=== PATIENT | male | born 1960 | race Caucasian/White ===

== ENCOUNTER 2016-10-22 08:06 | Day surgery (SDC) | payer BC ==
[~2016-10-22] VITALS: Ht 172.7 cm; Wt 100.0 kg
[~2016-10-22 08:06] MED LIST: ALBU8.5H INH; ALPR0.255 PO; ASPI-611 PO; ATOR20TA59 PO; ESCI10TA47 PO; LIDOCAINE 1% (10mg/ml) 2ml SDV INJ ONE; LISI-621 PO; LR 1,000 ML IV SCH; TIOT4MIS5 ORAL INH
--- OUTSIDE RECORDS SUMMARY | 2016-10-22 08:11 | XMS REPORT | Continuity of Care Document ---
Author Author [facility] Organization [facility] Address Unknown Phone Unavailable Support Name Relationship Address Phone CONSTANCE [place] Next Of Kin [address] [place] [address] Unavailable Insurance Providers Payer Name Policy Number Subscriber Name Relationship [facility] [id number] Chula Chavarria 20 Self Problems No Known Problems or Medical conditions. Family History History Response Recorded Date/Time HX of Orthopedic Surgeries Y L THUMB PARTIAL AMPUTATION 12/26/12 6:18am Hx Abdominal Surgery Y bowel resection 10/1612/26/12 6:18am HX Cerebrovascular Accident N 12/26/12 6:18am Hx Seizures N 12/26/12 6:18am Hx Angina N 12/26/12 6:18am Hx Congestive Heart Failure N 12/26/12 6:18am Hx Heart Attack N 12/26/12 6:18am Hx Hypertension Y 12/26/12 6:18am Hx Chronic Obstructive Pulmonary Disease (COPD) N 12/26/12 6:18am Hx Diabetes N 12/26/12 6:18am Hx Clotting Problems N 12/26/12 6:18am Hx Cancer Y RECENT DX COLON CA 12/26/12 6:18am Hx MRSA N 12/26/12 6:18am HX of Cardiac Surgeries N 12/26/12 6:18am HX of Reproductive Surgeries Y VASECTOMY 12/26/12 6:18am HX of Endocrine Surgeries N 12/26/12 6:18am HX of Throat Surgery Y TONSILLECTOMY 12/26/12 6:18am HX of Neurological Surgeries N 12/26/12 6:18am HX of Genitourinary Surgeries N 12/26/12 6:18am Social History History Response Recorded Date/Time Smoking Status Current every day smoker 12/26/12 6:18am Chewing Tobacco Status N 12/26/12 6:18am Hx Substance Use N 12/26/12 6:18am Hx Alcohol Use N 07/23/13 6:18am Has the pt used tobacco in the last 12 months Y 12/13/12 6:03am Allergies, Adverse Reactions, Alerts Allergen Type Severity Reaction Last Updated No Known Allergies 12/26/12 Medications Medication Dose Units Route Sig Qty Days [5-Fu] IV CONTINUOUS Hydrocodone Bit/Acetaminophen (Lortab 5) 1 Tab PO PRN Prochlorperazine Maleate 10 Mg PO PRN Ondansetron Hcl 8 Mg PO PRN Lisinopril/Hydrochlorothiazide (Lisinopril-Hctz 10-12.5 Tablet) 1 Tab PO DAILY Lisinopril/Hydrochlorothiazide (Lisinopril-Hctz 20-25MG Tab) 0.5 Tab PO DAILY Simvastatin 40 Mg PO DAILY Nebivolol Hcl (Bystolic) 5 Mg PO DAILY Sildenafil Citrate (Viagra) 50 Mg PO PRN Immunizations Name Given Type Hx Influenza Vaccination Y FALL 2011 H Hx Pneumococcal Vaccination Y 2009 H Response Recorded Date/Time Status not known Unknown Results Test Date Result Interp. Ref. Range Alanine Aminotransferase (ALT/SGPT) December 14, 2012 4:55am 39 U/L N 21-72 Albumin December 14, 2012 4:55am 3.8 G/DL N 3.5-5.0 Albumin/Globulin Ratio December 14, 2012 4:55am 1.4 RATIO N 1.1-2.2 Alkaline Phosphatase December 14, 2012 4:55am 48 U/L N 38-126 Anion Gap December 14, 2012 4:55am 13 MEQ/L N 5-15 Aspartate Amino Transf (AST/SGOT) December 14, 2012 4:55am 45 U/L N 17-59 BUN/Creatinine Ratio December 14, 2012 4:55am 25 RATIO N 6-26 Band Neutrophils # October 17, 2012 5:29am 2.2 T/MM3 - Band Neutrophils % October 17, 2012 5:29am 14.0 % H 0-6 Basophils # (Auto) January 09, 2013 9:10am 0.1 T/MM3 N 0-0.2 Basophils (%) (Auto) January 09, 2013 9:10am 0.6 % N 0-2 Blood Urea Nitrogen December 14, 2012 4:55am 20.0 MG/DL N 9-20 Calcium Level December 14, 2012 4:55am 8.9 MG/DL N 8.4-10.2 Calculated Osmolality December 14, 2012 4:55am 272 MOSM/KG N 261-280 Carbon Dioxide Level December 14, 2012 4:55am 29 MEQ/L N 22-30 Chloride Level December 14, 2012 4:55am 97 MEQ/L L 98-107 Cholesterol Level December 14, 2012 4:55am 222 MG/DL H 132-199 Cholesterol/HDL Ratio December 14, 2012 4:55am 4.5 RATIO N 0-5.0 Conjugated Bilirubin December 13, 2012 3:12am 0.00 MG/DL N 0.00-0.30 Creatinine December 14, 2012 4:55am 0.8 MG/DL DN 0.8-1.5 Eosinophils # (Auto) January 09, 2013 9:10am 0.3 T/MM3 N 0-0.5 Eosinophils (%) (Auto) January 09, 2013 9:10am 3.4 % N 0-4 Globulin December 14, 2012 4:55am 2.7 G/DL N 2.4-3.6 Glomerular Filtration Rate Calc December 14, 2012 4:55am 102 - Glucometer October 16, 2012 8:53pm 129 mg/dL H 75-110 Glucose Level December 14, 2012 4:55am 109 MG/DL N 75-110 HDL Cholesterol Direct December 14, 2012 4:55am 49 MG/DL N 40-60 Hematocrit January 09, 2013 9:10am 45.7 % N 41-53 Hemoglobin January 09, 2013 9:10am 15.3 GM/DL N 13.5-17.5 Immature Granulocyte # (Auto) January 09, 2013 9:10am 0.04 T/MM3 H 0.00- 0.03 Immature Granulocyte % (Auto) January 09, 2013 9:10am 0.5 % N 0.0-0.5 LDL Cholesterol, Calculated December 14, 2012 4:55am 136.8 N 66-159 Lipase December 13, 2012 3:12am 69 U/L N 23-300 Lymphocytes # (Auto) January 09, 2013 9:10am 3.0 T/MM3 N 1-4.8 Lymphocytes # (Manual) October 17, 2012 5:29am 1.0 T/MM3 N 1-4.8 Lymphocytes % (Manual) October 17, 2012 5:29am 6.0 % L 23-45 Lymphocytes (%) (Auto) January 09, 2013 9:10am 37.0 % N 23-45 Mean Corpuscular Hemoglobin January 09, 2013 9:10am 29.8 UUG N 26-34 Mean Corpuscular Hemoglobin Concent January 09, 2013 9:10am 33.5 GM/DL N 31 -37 Mean Corpuscular Volume January 09, 2013 9:10am 88.9 UM3 N 80-100 Mean Platelet Volume January 09, 2013 9:10am 8.9 UM3 L 9.4-12.4 Monocytes # (Auto) January 09, 2013 9:10am 0.7 T/MM3 N 0-0.8 Monocytes # (Manual) October 17, 2012 5:29am 0.5 T/MM3 N 0-0.8 Monocytes % (Manual) October 17, 2012 5:29am 3.0 % N 0-9.0 Monocytes (%) (Auto) January 09, 2013 9:10am 8.2 % N 0-9.0 Neutrophils # (Auto) January 09, 2013 9:10am 4.1 T/MM3 N 1.8-7.7 Neutrophils # (Manual) October 17, 2012 5:29am 12.2 T/MM3 H 1.8-7.7 Neutrophils % (Manual) October 17, 2012 5:29am 77.0 % H 33-66 Neutrophils (%) (Auto) January 09, 2013 9:10am 50.3 % N 33-66 Platelet Count January 09, 2013 9:10am 246 T/MM3 N 130-400 Potassium Level December 14, 2012 4:55am 4.6 MEQ/L N 3.6-5 RDW Standard Deviation January 09, 2013 9:10am 43.9 FL N 36.9-50.2 Red Blood Count January 09, 2013 9:10am 5.14 M/MM3 N 4.50-5.90 Sodium Level December 14, 2012 4:55am 139 MEQ/L N 134-144 Total Bilirubin December 14, 2012 4:55am 1.00 MG/DL N 0.20-1.30 Total Protein December 14, 2012 4:55am 6.5 G/DL N 6.3-8.2 Triglycerides Level December 14, 2012 4:55am 181 MG/DL H 40-160 Troponin I December 13, 2012 6:55pm 0.088 ng/ml DN 0-0.12 Unconjugated Bilirubin December 13, 2012 3:12am 0.60 MG/DL N 0.00-1.10 VLDL Cholesterol December 14, 2012 4:55am 36.2 MG/DL H 0-28 White Blood Count January 09, 2013 9:10am 8.2 T/MM3 N 4.5-11.0 Procedures Procedure Code Date LESION REMOVAL COLONOSCOPY 07377 10/05/12 COLONOSCOPY AND BIOPSY 69169 10/05/12 ANTERIOR RECT RESECT NEC 48.63 10/16/12 LG-TO-LG BOWEL ANASTOM 45.94 10/16/12 ENDO RECTUM POLYPECTOMY 48.36 10/16/12 INSERT TUNNELED CV CATH [id number] 12/11/12 Encounters Encounter Location Date/Time Departed Emergency Room [facility] 12/26/12 6:15am Discharged Inpatient [facility] 12/13/12 4:25am
--- OUTSIDE RECORDS SUMMARY | 2016-10-22 08:11 | XMS REPORT | Continuity of Care Document ---
Author Author [facility] Organization [facility] Address Unknown Phone Unavailable Support Name Relationship Address Phone VERNELL BAUTISTA MD Caregiver [address] [place] [phone] CIRA REAGAN FACS, MD Caregiver [address] [place] [address] [phone] [address] [place] Next Of Kin [address] [place] [address] CP Insurance Providers Payer Name Policy Number Subscriber Name Relationship [facility] [id number] Chula Chavarria 20 Self Advance Directives Directive Response Recorded Date/Time Ordered Resuscitation Status Full Code 11/16/13 5:14pm Problems Medical Problems Problem Onset Date Status COPD Unknown Active rectal cancer Unknown Active right pneumothorax Unknown Active Medications Medication Dose Route Sig Days/Qty Instructions Order Date Discontinued Date Status Sildenafil Citrate 50 Mg PO NEEDED 10/04/12 10/04/12 Discontinued Nebivolol Hcl 5 Mg PO DAILY 10/04/12 10/04/12 Discontinued Lisinopril/Hydrochlorothiazide 0.5 Tab PO DAILY 10/04/12 10/13/12 Discontinued Simvastatin 40 Mg PO DAILY 10/04/12 10/04/12 Discontinued Lisinopril/Hydrochlorothiazide 1 Tab PO DAILY 12/11/12 04/30/13 Discontinued Lisinopril 10 Mg PO DAILY 04/30/13 Active Atorvastatin Calcium 40 Mg PO DAILY 11/16/13 Active Aspirin 81 Mg PO DAILY 11/16/13 Active Social History Social History Problem Response Recorded Date/Time Smoking Status Current some day smoker 11/16/2013 3:28pm Chewing Tobacco Status No 11/16/2013 3:28pm Hx Substance Use No 11/16/2013 3:28pm Hx Alcohol Use No 11/16/2013 3:28pm Has the pt used tobacco in the last 12 months Yes 11/16/2013 3:28pm Query Response Start Date Stop Date Smoking Status Current some day smoker Hospital Discharge Instructions No hospital discharge instructions. Plan of Care No plan of care. Functional Status No functional status results. Allergies, Adverse Reactions, Alerts Allergen Type Severity Reaction Status Last Updated No Known Allergies Active 04/30/13 Immunizations Name Given Type Hx Influenza Vaccination Y 03/2013 Historical Hx Pneumococcal Vaccination Y -2012 Historical Hx Influenza Vaccination Y 03/2013 Historical Vital Signs Acute Vital Signs Vital Response Date/Time Temperature (Fahrenheit) 98.7 deg F (96.8 - 99.1) Temperature (Calculated Celsius) 37.54562 degrees C (36.0 - 37.3) Temperature Source Temporal Pulse Rate (adult) 61 bpm (60 - 100) Respiratory Rate 16 breaths/min (10 - 20) O2 Sat by Pulse Oximetry 96 % (90 - 100) Blood Pressure 121/70 mm Hg Blood Pressure Source Automatic Cuff Height 5 ft 7 in Weight 182 lb Body Mass Index 28.0 kg/m^2 Results Test Source Date Result Interp. Ref. Range Comments Alanine Aminotransferase (ALT/SGPT) February 26, 2013 8:12am 36 U/L N 21-72 Albumin February 26, 2013 8:12am 4.6 G/DL N 3.5-5.0 Albumin/Globulin Ratio February 26, 2013 8:12am 1.4 RATIO N 1.1-2.2 Alkaline Phosphatase February 26, 2013 8:12am 57 U/L N 38-126 Anion Gap February 26, 2013 8:12am 13 MEQ/L N 5-15 Aspartate Amino Transf (AST/SGOT) February 26, 2013 8:12am 30 U/L N 17- 59 BUN/Creatinine Ratio February 26, 2013 8:12am 15 RATIO N 6-26 Band Neutrophils # May 21, 2013 8:30am 0.0 T/MM3 - Band Neutrophils % May 21, 2013 8:30am 1.0 % DN 0-6 Basophils # (Auto) June 26, 2013 10:20am 0.0 T/MM3 N 0-0.2 Basophils (%) (Auto) June 26, 2013 10:20am 0.4 % N 0-2 Blood Urea Nitrogen February 26, 2013 8:12am 15.0 MG/DL N 9-20 Calcium Level February 26, 2013 8:12am 10.4 MG/DL H 8.4-10.2 Calculated Osmolality February 26, 2013 8:12am 275 MOSM/KG N 261-280 Carbon Dioxide Level February 26, 2013 8:12am 29 MEQ/L N 22-30 Chloride Level February 26, 2013 8:12am 100 MEQ/L N 98-107 Cholesterol Level December 14, 2012 4:55am 222 MG/DL H 132-199 Cholesterol/HDL Ratio December 14, 2012 4:55am 4.5 RATIO N 0-5.0 Conjugated Bilirubin December 13, 2012 3:12am 0.00 MG/DL N 0.00-0.30 Creatinine February 26, 2013 8:12am 1.0 MG/DL N 0.8-1.5 Eosinophils # (Auto) June 26, 2013 10:20am 0.1 T/MM3 N 0-0.5 Eosinophils # (Manual) May 21, 2013 8:30am 0.1 T/MM3 N 0-0.5 Eosinophils % (Manual) May 21, 2013 8:30am 2.0 % N 0-4 Eosinophils (%) (Auto) June 26, 2013 10:20am 0.9 % N 0-4 Globulin February 26, 2013 8:12am 3.3 G/DL N 2.4-3.6 Glucose Level February 26, 2013 8:12am 113 MG/DL H 75-110 Hematocrit June 26, 2013 10:20am 42.4 % N 41-53 Hemoglobin June 26, 2013 10:20am 14.2 GM/DL N 13.5-17.5 LDL Cholesterol, Calculated December 14, 2012 4:55am 136.8 N 66-159 Lipase December 13, 2012 3:12am 69 U/L N 23-300 Lymphocytes # (Auto) June 26, 2013 10:20am 1.7 T/MM3 N 1-4.8 Lymphocytes # (Manual) May 21, 2013 8:30am 1.1 T/MM3 N 1-4.8 Lymphocytes % (Manual) May 21, 2013 8:30am 37.0 % N 23-45 Lymphocytes (%) (Auto) June 26, 2013 10:20am 20.2 % L 23-45 Mean Corpuscular Hemoglobin June 26, 2013 10:20am 31.8 UUG N 26-34 Mean Corpuscular Hemoglobin Concent June 26, 2013 10:20am 33.5 GM/DL N 31-37 Mean Corpuscular Volume June 26, 2013 10:20am 94.9 UM3 N 80-100 Mean Platelet Volume June 26, 2013 10:20am 9.0 UM3 L 9.4-12.4 Monocytes # (Auto) June 26, 2013 10:20am 1.1 T/MM3 H 0-0.8 Monocytes # (Manual) May 21, 2013 8:30am 0.3 T/MM3 N 0-0.8 Monocytes % (Manual) May 21, 2013 8:30am 10.0 % H 0-9.0 Monocytes (%) (Auto) June 26, 2013 10:20am 12.5 % H 0-9.0 Neutrophils # (Auto) June 26, 2013 10:20am 5.5 T/MM3 N 1.8-7.7 Neutrophils # (Manual) May 21, 2013 8:30am 1.3 T/MM3 L 1.8-7.7 Neutrophils % (Manual) May 21, 2013 8:30am 43.0 % N 33-66 Neutrophils (%) (Auto) June 26, 2013 10:20am 65.1 % N 33-66 Platelet Count June 26, 2013 10:20am 294 T/MM3 N 130-400 Potassium Level February 26, 2013 8:12am 4.9 MEQ/L N 3.6-5 RDW Standard Deviation June 26, 2013 10:20am 48.5 FL N 36.9-50.2 Red Blood Count June 26, 2013 10:20am 4.47 M/MM3 L 4.50-5.90 Sodium Level February 26, 2013 8:12am 142 MEQ/L N 134-144 Total Bilirubin February 26, 2013 8:12am 1.40 MG/DL H 0.20-1.30 Total Protein February 26, 2013 8:12am 7.9 G/DL N 6.3-8.2 Triglycerides Level December 14, 2012 4:55am 181 MG/DL H 40-160 Troponin I December 13, 2012 6:55pm 0.088 ng/ml DN 0-0.12 Unconjugated Bilirubin December 13, 2012 3:12am 0.60 MG/DL N 0.00-1.10 VLDL Cholesterol December 14, 2012 4:55am 36.2 MG/DL H 0-28 White Blood Count June 26, 2013 10:20am 8.5 T/MM3 N 4.5-11.0 Glucometer October 16, 2012 8:53pm 129 mg/dL H 75-110 Lab Scanned Report June 26, 2013 10:50am LAB TEST FORM REQUEST [id number] - HDL Cholesterol Direct December 14, 2012 4:55am 49 MG/DL N 40-60 Reactive Lymphocytes % May 21, 2013 8:30am 7.0 % H 0-0 Glomerular Filtration Rate Calc February 26, 2013 8:12am 79 - Reactive Lymphocytes # May 21, 2013 8:30am 0.2 T/MM3 H 0-0 Immature Granulocyte # (Auto) June 26, 2013 10:20am 0.08 T/MM3 H 0.00 -0.03 Immature Granulocyte % (Auto) June 26, 2013 10:20am 0.9 % H 0.0-0.5 Procedures Procedure Status Date Provider(s) DIAGNOSTIC COLONOSCOPY completed 11/19/13 CIRA REAGAN MD, FACS, CWS
--- OUTSIDE RECORDS SUMMARY | 2016-10-22 08:11 | XMS REPORT | Continuity of Care Document ---
Author Author [facility] Organization [facility] Address Unknown Phone Unavailable Support Name Relationship Address Phone DHEERAJ ODEN MD Caregiver [facility] [address] [facility] ZONIA MILLER [address] [place] [phone] VERNELL BAUTISTA MD Caregiver [address] [facility] [address] [place] [phone] NERY GARIBAY MD Caregiver [address] [place] [phone] CONSTANCE CHAVARRIA Next Of Kin [address] [place] [address] Insurance Providers Payer Name Policy Number Subscriber Name Relationship [facility] [id number] Chula Chavarria [address] [facility] [id number] Chula Chavarria 20 Self Advance Directives Directive Response Recorded Date/Time Advanced Directives Type None 04/20/14 7:54pm Ordered Resuscitation Status Full Code 11/16/13 5:14pm Resuscitation Documents on File No 04/20/14 11:33pm Chief Complaint and Reason for Visit Chief Complaint SPONTANEOUS PNEUMOTHORAX Reason for Visit COPD exacerbation Pneumothorax on right COPD exacerbation Problems Medical Problems Problem Onset Date Status COPD Unknown Active rectal cancer Unknown Active right pneumothorax Unknown Active COPD exacerbation Unknown Active Pneumothorax on right Unknown Active COPD exacerbation Unknown Active Medications Medication Dose Route Sig [...] Aspirin 81 Mg PO DAILY 11/16/13 Active Amoxicillin 1 Cap PO THREE TIMES A DAY 10 Days 04/21/14 Active Social History Social History Problem Response Recorded Date/Time Smoking Status Current some day smoker 11/16/2013 3:28pm When did patient START smoking? 1975 04/20/2014 11:35pm When did patient STOP smoking? 10/201204/20/2014 11:35pm Chewing Tobacco Status No 11/16/2013 3:28pm Hx Substance Use No 04/20/2014 7:54pm Hx Alcohol Use No 04/20/2014 7:54pm Has the pt used tobacco in the last 12 months Yes 04/20/2014 11:35pm Query Response Start Date Stop Date Smoking Status Current some day smoker Hospital Discharge Instructions Instructions: Care Instructions: Reason for Hospitalization: pneumothorax I was in the hospital because (patient own words): "Collapsed right lung" Discharge Diet: As tolerated Wound/Incision Care: Keep dressings at chest wall dry. Notify Physician If: During the week: If you have questions about your care or wound, Call Dr. Oden's office at [phone]. During the evening or on the weekends: If you have questions about your care or wound, Call [facility] at [phone] and have the sling operator page Dr. Oden. Condition at time of discharge: Good General Information: See [place] orders. Condition at time of discharge: Good Condition at time of discharge: Fair Plan of Care Discharge Date 04/26/14 5:05pm Disposition 01 DISCHARGED HOME, SELF-CARE Instructions/Education Provided DI for Pneumothorax Prescriptions See Medications Section Functional Status Query Response Date Recorded Physical Hygiene Self April 26, 2014 4:51pm Disabilities Visual April 26, 2014 4:51pm Devices Used Glasses April 26, 2014 4:51pm Dressing Self April 26, 2014 4:51pm Ambulation Self April 26, 2014 4:51pm Diet Self April 26, 2014 4:51pm Mental Status Alert Oriented April 26, 2014 4:51pm Disabilities Visual April 26, 2014 4:51pm Devices Used Glasses April 26, 2014 4:51pm Physical Hygiene Self April 26, 2014 4:51pm Dressing Self April 26, 2014 4:51pm Ambulation Self April 26, 2014 4:51pm Diet Self April 26, 2014 4:51pm Allergies, Adverse Reactions, Alerts Allergen Type Severity Reaction Status Last Updated No Known Allergies Active 04/30/13 Immunizations Name Given Type Hx Influenza Vaccination Y 04/21/14 Historical Hx Pneumococcal Vaccination No Historical Hx Tetanus, Diptheria, Pertussis No Historical Hx Influenza Vaccination Y 04/21/14 Historical Hx Tetanus Diptheria No Historical Hx Tetanus, Diptheria, Pertussis No Historical Hx Tetanus Toxoid Vaccination No Historical Influenza, seasonal, injectable 04/21/14 Administered Influenza, seasonal, injectable 04/21/14 Administered Vital Signs Acute Vital Signs Vital Response Date/Time Temperature (Fahrenheit) 97.1 deg F (96.8 - 99.1) Temperature (Calculated Celsius) 36.16981 degrees C (36.0 - 37.3) Temperature Source Oral Pulse Rate (adult) 61 bpm (60 - 100) O2 Sat by Pulse Oximetry 95 % (90 - 100) Oxygen Delivery Method Room Air Blood Pressure 123/75 mm Hg Height 5 ft 7 in Weight 194 lb Body Mass Index 30.0 kg/m^2 Results Test Source Date Result Interp. Ref. Range Comments Alanine Aminotransferase (ALT/SGPT) April 20, 2014 9:03pm 42 U/L N 21 -72 Albumin April 20, 2014 9:03pm 4.3 G/DL N 3.5-5.0 Albumin/Globulin Ratio April 20, 2014 9:03pm 1.3 RATIO N 1.1-2.2 Alkaline Phosphatase April 20, 2014 9:03pm 68 U/L N 38-126 Anion Gap April 20, 2014 9:03pm 13 MEQ/L N 5-15 Aspartate Amino Transf (AST/SGOT) April 20, 2014 9:03pm 32 U/L N 17- 59 BUN/Creatinine Ratio April 20, 2014 9:03pm 19 RATIO N 6-26 Band Neutrophils # May 21, 2013 8:30am 0.0 T/MM3 - Band Neutrophils % May 21, 2013 8:30am 1.0 % DN 0-6 Basophils # (Auto) April 20, 2014 9:03pm 0.1 T/MM3 N 0-0.2 Basophils (%) (Auto) April 20, 2014 9:03pm 0.5 % N 0-2 Blood Urea Nitrogen April 20, 2014 9:03pm 19.0 MG/DL N 9-20 Calcium Level April 20, 2014 9:03pm 9.4 MG/DL N 8.4-10.2 Calculated Osmolality April 20, 2014 9:03pm 281 MOSM/KG H 261-280 Carbon Dioxide Level April 20, 2014 9:03pm 27 MEQ/L N 22-30 Chloride Level April 20, 2014 9:03pm 103 MEQ/L N 98-107 Cholesterol Level December 14, 2012 4:55am 222 MG/DL H 132-199 Cholesterol/HDL Ratio December 14, 2012 4:55am 4.5 RATIO N 0-5.0 Conjugated Bilirubin December 13, 2012 3:12am 0.00 MG/DL N 0.00-0.30 Creatinine April 20, 2014 9:03pm 1.0 MG/DL N 0.8-1.5 D-Dimer April 20, 2014 9:01pm 168 NG/ML N 0-224 <224 NG/ML= PRESUMPTIVE NEGATIVE FOR PE OR DVT>224 NG/ML=ADDITIONAL EVALUATION FOR PE OR DVT RECOMMENDED Eosinophils # (Auto) April 20, 2014 9:03pm 0.1 T/MM3 N 0-0.5 Eosinophils # (Manual) May 21, 2013 8:30am 0.1 T/MM3 N 0-0.5 Eosinophils % (Manual) May 21, 2013 8:30am 2.0 % N 0-4 Eosinophils (%) (Auto) April 20, 2014 9:03pm 1.2 % N 0-4 Globulin April 20, 2014 9:03pm 3.2 G/DL N 2.4-3.6 Glucose Level April 20, 2014 9:03pm 167 MG/DL H 75-110 Hematocrit April 20, 2014 9:03pm 44.0 % N 41-53 Hemoglobin April 20, 2014 9:03pm 14.9 GM/DL N 13.5-17.5 Influenza Type A Antigen April 20, 2014 8:05pm Negative - Negative for Flu A protein antigen. Assay sensitivity is90%. Influenza Type B Antigen April 20, 2014 8:05pm Negative - Negative for Flu B protein antigen. Assay sensitivity is90%. LDL Cholesterol, Calculated December 14, 2012 4:55am 136.8 N 66-159 Lipase December 13, 2012 3:12am 69 U/L N 23-300 Lymphocytes # (Auto) April 20, 2014 9:03pm 1.9 T/MM3 N 1-4.8 Lymphocytes # (Manual) May 21, 2013 8:30am 1.1 T/MM3 N 1-4.8 Lymphocytes % (Manual) May 21, 2013 8:30am 37.0 % N 23-45 Lymphocytes (%) (Auto) April 20, 2014 9:03pm 18.0 % L 23-45 Mean Corpuscular Hemoglobin April 20, 2014 9:03pm 31.0 UUG N 26-34 Mean Corpuscular Hemoglobin Concent April 20, 2014 9:03pm 33.9 GM/DL N 31-37 Mean Corpuscular Volume April 20, 2014 9:03pm 91.7 UM3 N 80-100 Mean Platelet Volume April 20, 2014 9:03pm 8.7 UM3 L 9.4-12.4 Monocytes # (Auto) April 20, 2014 9:03pm 0.9 T/MM3 H 0-0.8 Monocytes # (Manual) May 21, 2013 8:30am 0.3 T/MM3 N 0-0.8 Monocytes % (Manual) May 21, 2013 8:30am 10.0 % H 0-9.0 Monocytes (%) (Auto) April 20, 2014 9:03pm 8.7 % N 0-9.0 Neutrophils # (Auto) April 20, 2014 9:03pm 7.6 T/MM3 N 1.8-7.7 Neutrophils # (Manual) May 21, 2013 8:30am 1.3 T/MM3 L 1.8-7.7 Neutrophils % (Manual) May 21, 2013 8:30am 43.0 % N 33-66 Neutrophils (%) (Auto) April 20, 2014 9:03pm 70.9 % H 33-66 Platelet Count April 20, 2014 9:03pm 382 T/MM3 N 130-400 Potassium Level April 20, 2014 9:03pm 4.1 MEQ/L N 3.6-5 RDW Standard Deviation April 20, 2014 9:03pm 41.5 FL N 36.9-50.2 Red Blood Count April 20, 2014 9:03pm 4.80 M/MM3 N 4.50-5.90 Sodium Level April 20, 2014 9:03pm 143 MEQ/L N 134-144 Total Bilirubin April 20, 2014 9:03pm 0.70 MG/DL N 0.20-1.30 Total Protein April 20, 2014 9:03pm 7.5 G/DL N 6.3-8.2 Triglycerides Level December 14, 2012 4:55am 181 MG/DL H 40-160 Troponin I April 20, 2014 9:03pm < 0.012 ng/ml 0-0.12 Unconjugated Bilirubin December 13, 2012 3:12am 0.60 MG/DL N 0.00-1.10 VLDL Cholesterol December 14, 2012 4:55am 36.2 MG/DL H 0-28 White Blood Count April 20, 2014 9:03pm 10.7 T/MM3 N 4.5-11.0 Chemistry Specimen Hemolysis April 20, 2014 9:03pm < 15 0-25 0-25 : No Hemolysis.26-70: Slight Hemolysis - can falsely elevate K and Urine Protein. 71-285: Moderate Hemolysis - can falsely elevate K, Troponin I, CA 19-9, PTH, CSF GLucose, and Urine Protein, and can falsely decrease Phenytoin. 286-999: Gross Hemolysis - can falsely elevate K, Troponin I, CA 19-9, PTH, CSF Glucose, and Urine Protine, and can falsely decrease Phenytoin. Recommend specimen recollection. Glucometer October 16, 2012 8:53pm 129 mg/dL H 75-110 Lab Scanned Report June 26, 2013 10:50am LAB TEST FORM REQUEST [id number] - HDL Cholesterol Direct December 14, 2012 4:55am 49 MG/DL N 40-60 Turbidity April 20, 2014 9:03pm < 20 0-20 Reactive Lymphocytes % May 21, 2013 8:30am 7.0 % H 0-0 Glomerular Filtration Rate Calc April 20, 2014 9:03pm 79 - Reactive Lymphocytes # May 21, 2013 8:30am 0.2 T/MM3 H 0-0 Immature Granulocyte # (Auto) April 20, 2014 9:03pm 0.07 T/MM3 H 0.00 -0.03 Immature Granulocyte % (Auto) April 20, 2014 9:03pm 0.7 % H 0.0-0.5 Venous Blood Lactate April 20, 2014 9:02pm 1.8 MMOL/L N 0.6-2.2 Icterus Index April 20, 2014 9:03pm < 2 0-7 Blood Culture Peripheral Blood April 20, 2014 9:10pm NO GROWTH AFTER 5 DAYS Name: CHULA CHAVARRIA Unit #: [id number] : 1960 Sex: M Loc / Svc: MED DOS: 04/20/14 Signed Report #: [id number] DIAGNOSTIC IMAGING REPORT TYPE OF EXAM: CHEST 1 VIEW Dictated By: ARTI GAONA MD INDICATION: ITS.REASON: right pneumothorax CHEST 1 VIEW: Comparison: April 25, 2014 Findings: No residual pneumothorax identified. Appearance of the lungs is stable. Subcutaneous emphysema in the right chest wall. Cardiomediastinal contours are unchanged. Impression: Stable chest. No pneumothorax seen. . Procedures No known history of procedures. Encounters Encounter Location Date/Time Discharged Inpatient [facility] 04/20/14 10:04pm Recent Diagnosis COPD exacerbation Pneumothorax on right COPD exacerbation
--- OUTSIDE RECORDS SUMMARY | 2016-10-22 08:11 | XMS REPORT | Continuity of Care Document ---
Author Author [facility] Organization [facility] Address Unknown Phone Unavailable Support Name Relationship Address Phone CONSTANCE LR Next Of Kin [address] [place] [address] Unavailable Insurance Providers Payer Name Policy Number Subscriber Name Relationship [facility] [id number] Chula Chavarria 20 Self Problems No Known [...] Procedures Procedure Code Date LESION REMOVAL COLONOSCOPY 34904 10/05/12 COLONOSCOPY AND BIOPSY 45962 10/05/12 ANTERIOR RECT RESECT NEC 48.63 10/16/12 LG-TO-LG BOWEL ANASTOM 45.94 10/16/12 ENDO RECTUM POLYPECTOMY 48.36 10/16/12 INSERT TUNNELED CV CATH [id number] 12/11/12 Encounters Encounter Location Date/Time Departed Emergency Room [facility] 12/26/12 6:15am Discharged Inpatient [facility] 12/13/12 4:25am
--- OUTSIDE RECORDS SUMMARY | 2016-10-22 08:11 | XMS REPORT | Continuity of Care Document ---
Author Author [facility] Organization [facility] Address Unknown Phone Unavailable Support Name Relationship Address Phone VERNELL BAUTISTA MD Caregiver [address] [place] [address] [place] [phone] CONSTANCE CHAVARRIA Next Of Kin [address] [place], [place] [id number] Insurance Providers Payer Name Policy Number Subscriber Name Relationship [facility] [id number] Chula Chavarria 20 Self [facility] [id number] Chula Chavarria 20 Self Advance Directives Directive Response Recorded Date/Time Ordered Resuscitation Status Full Code 11/16/13 5:14pm Resuscitation Documents on File No 08/01/14 3:30pm Chief Complaint and Reason for Visit Chief Complaint SPONTANEOUS PNEUMOTHORAX Reason for Visit right pneumothorax Problems Medical Problems Problem Onset Date Status [...] Mg PO DAILY 04/30/13 Active Atorvastatin Calcium 20 Mg PO DAILY 11/16/13 Active Aspirin 81 Mg PO DAILY 11/16/13 Active Social History Social History Problem Response Recorded Date/Time Chewing Tobacco Status No 11/16/2013 3:28pm Hx Substance Use No 04/20/2014 7:54pm Hx Alcohol Use No 04/20/2014 7:54pm Has the pt used tobacco in the last 12 months Yes 08/01/2014 3:34pm Query Response Start Date Stop Date Smoking Status Current some day smoker Hospital Discharge Instructions Instructions: Care Instructions: Reason for Hospitalization: RIGHT I was in the hospital because (patient own words): "FELT LIKE MY LUNG COLLAPSED. I FELT SOA" Discharge Diet: NPO until seen by Pulmonology Discharge Activity: Minimal activity until cleared by Pulmonology Follow Up Appointments: Dr. Bautista in 1-2 weeks Patient Instructions: Head to [facility] to see Dr. Paige later today. If there is a problem with access let me know. General Information: TAKE DISCS TO DR. PAIGE'S OFFICE FOR REVIEW Condition at time of discharge: Fair Condition at time of discharge: Good 10.6 Congenital Heart Disease Screening Result: Pass Plan of Care Discharge Date 08/02/14 9:45am Disposition 01 DISCHARGED HOME, SELF-CARE Instructions/Education Provided DI for Pneumothorax Prescriptions See Medications Section Functional Status Query Response Date Recorded Physical Hygiene Self August 02, 2014 9:00am Disabilities None August 02, 2014 9:00am Devices Used None August 02, 2014 9:00am Dressing Self August 02, 2014 9:00am Ambulation Self August 02, 2014 9:00am Diet Self August 02, 2014 9:00am Mental Status Alert Oriented August 02, 2014 9:00am Disabilities None August 02, 2014 9:00am Devices Used None August 02, 2014 9:00am Physical Hygiene Self August 02, 2014 9:00am Dressing Self August 02, 2014 9:00am Ambulation Self August 02, 2014 9:00am Diet Self August 02, 2014 9:00am Allergies, Adverse Reactions, Alerts Allergen Type Severity Reaction Status Last Updated No Known Allergies Active 08/01/14 Immunizations Name Given Type Hx Influenza Vaccination Y 04/21/14 Historical Hx Pneumococcal Vaccination No Historical Hx Tetanus, Diptheria, Pertussis No Historical Hx Influenza Vaccination Y 04/21/14 Historical Hx Tetanus Diptheria No Historical Hx Tetanus, Diptheria, Pertussis No Historical Hx Tetanus Toxoid Vaccination No Historical Vital Signs Acute Vital Signs Vital Response Date/Time Temperature (Fahrenheit) 97.5 deg F (96.8 - 99.1) Temperature (Calculated Celsius) 36.32445 degrees C (36.0 - 37.3) Pulse Rate (adult) 63 bpm (60 - 100) Respiratory Rate 16 breaths/min (10 - 20) Height 5 ft 7 in Weight 196 lb Body Mass Index 30.0 kg/m^2 Results Test Source Date Result Interp. Ref. Range Comments Alanine Aminotransferase (ALT/SGPT) August 02, 2014 4:55am 29 U/L N 21 -72 Albumin August 02, 2014 4:55am 4.0 G/DL N 3.5-5.0 Albumin/Globulin Ratio August 02, 2014 4:55am 1.3 RATIO N 1.1-2.2 Alkaline Phosphatase August 02, 2014 4:55am 54 U/L N 38-126 Anion Gap August 02, 2014 4:55am 9 MEQ/L N 5-15 Aspartate Amino Transf (AST/SGOT) August 02, 2014 4:55am 24 U/L N 17- 59 BUN/Creatinine Ratio August 02, 2014 4:55am 20 RATIO N 6-26 Band Neutrophils # May 21, 2013 8:30am 0.0 T/MM3 - Band Neutrophils % May 21, 2013 8:30am 1.0 % DN 0-6 Basophils # (Auto) August 02, 2014 4:55am 0.0 T/MM3 N 0-0.2 Basophils (%) (Auto) August 02, 2014 4:55am 0.2 % N 0-2 Blood Urea Nitrogen August 02, 2014 4:55am 18.0 MG/DL N 9-20 Calcium Level August 02, 2014 4:55am 8.9 MG/DL N 8.4-10.2 Calculated Osmolality August 02, 2014 4:55am 274 MOSM/KG N 261-280 Carbon Dioxide Level August 02, 2014 4:55am 28 MEQ/L N 22-30 Chemistry Specimen Hemolysis August 02, 2014 4:55am < 15 0-25 0-25 : No Hemolysis.26-70: [...] can falsely decrease Phenytoin. Recommend specimen recollection. Chloride Level August 02, 2014 4:55am 104 MEQ/L N 98-107 Cholesterol Level December 14, 2012 4:55am 222 MG/DL H 132-199 Cholesterol/HDL Ratio December 14, 2012 4:55am 4.5 RATIO N 0-5.0 Conjugated Bilirubin December 13, 2012 3:12am 0.00 MG/DL N 0.00-0.30 Creatinine August 02, 2014 4:55am 0.9 MG/DL N 0.8-1.5 D-Dimer April 20, 2014 9:01pm 168 NG/ML N 0-224 <224 NG/ML= PRESUMPTIVE NEGATIVE FOR PE OR DVT>224 NG/ML=ADDITIONAL EVALUATION FOR PE OR DVT RECOMMENDED Eosinophils # (Auto) August 02, 2014 4:55am 0.3 T/MM3 N 0-0.5 Eosinophils # (Manual) May 21, 2013 8:30am 0.1 T/MM3 N 0-0.5 Eosinophils % (Manual) May 21, 2013 8:30am 2.0 % N 0-4 Eosinophils (%) (Auto) August 02, 2014 4:55am 3.0 % N 0-4 Globulin August 02, 2014 4:55am 3.0 G/DL N 2.4-3.6 Glomerular Filtration Rate Calc August 02, 2014 4:55am 89 - Glucometer October 16, 2012 8:53pm 129 mg/dL H 75-110 Glucose Level August 02, 2014 4:55am 120 MG/DL H 75-110 HDL Cholesterol Direct December 14, 2012 4:55am 49 MG/DL N 40-60 Hematocrit August 02, 2014 4:55am 47.2 % N 41-53 Hemoglobin August 02, 2014 4:55am 15.4 GM/DL N 13.5-17.5 Icterus Index August 02, 2014 4:55am < 2 0-7 Immature Granulocyte # (Auto) August 02, 2014 4:55am 0.04 T/MM3 H 0.00 -0.03 Immature Granulocyte % (Auto) August 02, 2014 4:55am 0.5 % N 0.0-0.5 Influenza Type A Antigen April 20, 2014 8:05pm Negative - Negative for Flu A protein antigen. Assay sensitivity is90%. Influenza Type B Antigen April 20, 2014 8:05pm Negative - Negative for Flu B protein antigen. Assay sensitivity is90%. LDL Cholesterol, Calculated December 14, 2012 4:55am 136.8 N 66-159 Lab Scanned Report June 26, 2013 10:50am LAB TEST FORM REQUEST [id number] - Lipase December 13, 2012 3:12am 69 U/L N 23-300 Lymphocytes # (Auto) August 02, 2014 4:55am 1.9 T/MM3 N 1-4.8 Lymphocytes # (Manual) May 21, 2013 8:30am 1.1 T/MM3 N 1-4.8 Lymphocytes % (Manual) May 21, 2013 8:30am 37.0 % N 23-45 Lymphocytes (%) (Auto) August 02, 2014 4:55am 22.5 % L 23-45 Mean Corpuscular Hemoglobin August 02, 2014 4:55am 30.0 UUG N 26-34 Mean Corpuscular Hemoglobin Concent August 02, 2014 4:55am 32.6 GM/DL N 31-37 Mean Corpuscular Volume August 02, 2014 4:55am 92.0 UM3 N 80-100 Mean Platelet Volume August 02, 2014 4:55am 9.0 UM3 L 9.4-12.4 Monocytes # (Auto) August 02, 2014 4:55am 0.8 T/MM3 N 0-0.8 Monocytes # (Manual) May 21, 2013 8:30am 0.3 T/MM3 N 0-0.8 Monocytes % (Manual) May 21, 2013 8:30am 10.0 % H 0-9.0 Monocytes (%) (Auto) August 02, 2014 4:55am 10.0 % H 0-9.0 Neutrophils # (Auto) August 02, 2014 4:55am 5.3 T/MM3 N 1.8-7.7 Neutrophils # (Manual) May 21, 2013 8:30am 1.3 T/MM3 L 1.8-7.7 Neutrophils % (Manual) May 21, 2013 8:30am 43.0 % N 33-66 Neutrophils (%) (Auto) August 02, 2014 4:55am 63.8 % N 33-66 Platelet Count August 02, 2014 4:55am 318 T/MM3 N 130-400 Potassium Level August 02, 2014 4:55am 4.9 MEQ/L N 3.6-5 RDW Standard Deviation August 02, 2014 4:55am 46.1 FL N 36.9-50.2 Reactive Lymphocytes # May 21, 2013 8:30am 0.2 T/MM3 H 0-0 Reactive Lymphocytes % May 21, 2013 8:30am 7.0 % H 0-0 Red Blood Count August 02, 2014 4:55am 5.13 M/MM3 N 4.50-5.90 Sodium Level August 02, 2014 4:55am 141 MEQ/L N 134-144 Total Bilirubin August 02, 2014 4:55am 0.90 MG/DL N 0.20-1.30 Total Protein August 02, 2014 4:55am 7.0 G/DL N 6.3-8.2 Triglycerides Level December 14, 2012 4:55am 181 MG/DL H 40-160 Troponin I April 20, 2014 9:03pm < 0.012 ng/ml 0-0.12 Turbidity August 02, 2014 4:55am < 20 0-20 Unconjugated Bilirubin December 13, 2012 3:12am 0.60 MG/DL N 0.00-1.10 VLDL Cholesterol December 14, 2012 4:55am 36.2 MG/DL H 0-28 Venous Blood Lactate April 20, 2014 9:02pm 1.8 MMOL/L N 0.6-2.2 White Blood Count August 02, 2014 4:55am 8.3 T/MM3 N 4.5-11.0 Blood Culture Peripheral Blood April 20, 2014 9:10pm NO GROWTH AFTER 5 DAYS Name: CHULA CHAVARRIA Unit #: [id number] : 1960 Sex: M Loc / Svc: SRG DOS: Signed Report #: [id number] DIAGNOSTIC IMAGING REPORT TYPE OF EXAM: CHEST, PA & LATERAL Dictated By: ARTI GAONA MD INDICATION: ITS.REASON: PNEUMOTHORAX CHEST 2-VIEWS UPRIGHT (PA & LAT) COMPARISON: August 01, 2014 FINDINGS: The small right pneumothorax is stable in size. Minimal right basilar opacity is unchanged. Severe bullous change on the left is redemonstrated. No new findings. Cardiomediastinal contours are stable. Impression: Stable right pneumothorax. . Procedures No known history of procedures. Encounters Encounter Location Date/Time Discharged Inpatient [facility] 08/01/14 2:44pm Registered Clinic [facility] 08/01/14 1:18pm Recent Diagnosis right pneumothorax
--- OUTSIDE RECORDS SUMMARY | 2016-10-22 08:12 | XMS REPORT | Continuity of Care Document ---
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 10/25/2015 Antonio Anaya MD E78.5 HYPERLIPIDEMIA, UNSPECIFIED 10/25/2015 Antonio Anaya MD F17.200 NICOTINE DEPENDENCE, UNSPECIFIED, UNCOMPLICATED 10/25/2015 Antonio Anaya MD F41.9 ANXIETY DISORDER, UNSPECIFIED 10/25/2015 Antonio Anaya MD I10 ESSENTIAL (PRIMARY) HYPERTENSION 10/25/2015 Antonio Anaya MD I25.10 ATHSCL HEART DISEASE OF [place] CORONARY ARTERY W/O 10/25/2015 Antonio Anaya MD J44.1 CHRONIC OBSTRUCTIVE PULMONARY DISEASE W ( ACUTE) EX 10/25/2015 Antonio Anaya MD J93.83 OTHER PNEUMOTHORAX 10/25/2015 Antonio Anaya MD J96.21 ACUTE AND CHRONIC RESPIRATORY FAILURE WITH HYPOXIA 10/25/2015 Antonio Anaya MD J96.22 ACUTE AND CHRONIC RESPIRATORY FAILURE WITH HYPERCA 10/25/2015 Antonio Anaya MD R06.02 SHORTNESS OF BREATH 10/25/2015 Antonio Anaya MD Z95.5 PRESENCE OF CORONARY ANGIOPLASTY IMPLANT AND GRAFT 10/30/2015 J43.9 Emphysema, unspecified ABEL IRWIN MD 10/30/2015 J44.9 Chronic obstructive pulmonary disease, unspecified ABEL IRWIN MD 10/30/2015 J93.9 Pneumothorax, unspecified SANTANA FUENTES, ABEL Villa 11/12/2015 I25.10 Atherosclerotic heart disease of [place] coronary artery without angina pectoris GEOFFREY FUENTES, MICHAEL 11/12/2015 J44.9 Chronic obstructive pulmonary disease, unspecified GEOFFREY FUENTES, MICHAEL 11/12/2015 J93.9 Pneumothorax, unspecified GEOFFREY FUENTES, MICHAEL 11/12/2015 J96.90 Respiratory failure, unspecified, unspecified whether with hypoxia or hypercapnia GEOFFREY FUENTES, MICHAEL 02/24/2016 Jhon Strong DO E16.2 HYPOGLYCEMIA, UNSPECIFIED 02/24/2016 Jhon Strong DO E87.5 HYPERKALEMIA 02/24/2016 Jhon Strong DO I10 ESSENTIAL (PRIMARY) HYPERTENSION 02/24/2016 Jhon Strong DO I25.10 ATHSCL HEART DISEASE OF [place] CORONARY ARTERY W/O 02/24/2016 Jhon Strong DO I25.2 OLD MYOCARDIAL INFARCTION 02/24/2016 Jhon Strong DO J18.9 PNEUMONIA, UNSPECIFIED ORGANISM 02/24/2016 Jhon Strong DO J43.9 EMPHYSEMA, UNSPECIFIED 02/24/2016 Jhon Strong DO A Sam J44.1 CHRONIC OBSTRUCTIVE PULMONARY DISEASE W ( ACUTE) EXACERBATION 02/24/2016 Jhon Strong DO J93.9 PNEUMOTHORAX, UNSPECIFIED 02/24/2016 Jhon Strong DO J96.02 ACUTE RESPIRATORY FAILURE WITH HYPERCAPNIA 02/24/2016 Jhon Strong DO Z72.0 TOBACCO USE 02/24/2016 Jhon Strong DO Z79.82 CARE HOME (CURRENT) USE OF ASPIRIN 03/27/2016 DEL CRYSTAL S J43.9 EMPHYSEMA, UNSPECIFIED GRIZZELL, DEL 03/27/2016 DEL CRYSTAL P R07.9 CHEST PAIN, UNSPECIFIED GRIZZELL, DEL 03/27/2016 GRGLORIAELLDEL A R07.9 CHEST PAIN, UNSPECIFIED GRIZZELL, DEL 07/31/2016 PETROS CHRISTIE P J43.9 EMPHYSEMA, UNSPECIFIED PETROS CHRISTIE Procedures Code Description Performed By Performed On [id number] DRAINAGE OF PERITONEAL CAVITY WITH DRAIN DEV, PERC Johnny Haider MD 10/25/2015 [id number] ASSISTANCE WITH RESPIRATORY VENTILATION, <24 HRS, Abel Irwin MD 10/25/2015 [id number] Subsequent hospital care, per day, for the evaluation and management of a patient, which requires at ABEL IRWIN MD 11/10/2015 [id number] Inpatient consultation for a new or established patient, which requires these 3 buitrago components: A co ABEL IRWIN MD 11/10/2015 [id number] Subsequent hospital care, per day, for the evaluation and management of a patient, which requires at MELANIE HALE MDOE 11/12/2015 14206 Subsequent hospital care, per day, for the evaluation and management of a patient, which requires at MELANIE HALE MDOE 11/12/2015 93013 Subsequent hospital care, per day, for the evaluation and management of a patient, which requires at MELANIE HALE MDOE 11/12/2015 [id number] Subsequent hospital care, per day, for the evaluation and management of a patient, which requires at MELANIE HALE MDOE 11/12/2015 [id number] Subsequent hospital care, per day, for the evaluation and management of a patient, which requires at MELANIE HALE MDOE 11/27/2015 91558 Subsequent hospital care, per day, for the evaluation and management of a patient, which requires at MELANIE HALE MDOE 11/27/2015 [id number] EXCISION OF RIGHT UPPER LOBE BRONCHUS, OPEN APPROA Petros Christie MD 02/24/2016 [id number] EXCISION OF RIGHT UPPER LUNG LOBE, OPEN APPROACH Petros Christie MD 02/24/2016 [id number] EXCISION OF RIGHT MIDDLE LUNG LOBE, OPEN APPROACH Petros Christie MD 02/24/2016 [id number] EXCISION OF RIGHT LOWER LUNG LOBE, OPEN APPROACH Petros Christie MD 02/24/2016 [id number] EXTIRPATION OF MATTER FROM TRACHEA, ENDO Petros Christie MD 02/24/2016 [id number] RELEASE RIGHT LUNG, OPEN APPROACH Petros Christie MD 02/24/2016 [id number] DRAINAGE OF R PLEURAL CAV WITH DRAIN DEV, PERC KIMBERLYN 02/24/2016 [id number] RESPIRATORY VENTILATION, 24-96 CONSECUTIVE HOURS Rudy FUENTES, Sam De Leon 02/24/2016 [id number] ULTRASONOGRAPHY OF RIGHT AND LEFT HEART, DUYEN Flores MD, Dee Vargas 02/24/2016 Results Test Result Range ARTERIAL BLOOD GAS - 10/25/15 11:41 ABG BASE EXCESS -4.1 meq/L -3.0-3.0 ABG DEVICE HIFI/NC ABG BICARBONATE 22.0 meq/L 23.0-28.0 ABG L/M 10.0 ABG PCO2 44 mm Hg 34-45 ABG PH 7.32 7.35-7.45 ABG PO2 95 mm Hg 75-100 ABG O2 SATURATION 97 % 93-100 BC REFLEX LACTIC ACID - 10/25/15 11:57 LACTIC ACID 3.4 mmol/L 0.5-2.0 CBC W/DIFF - 10/25/15 11:57 COMMENT REVIEWED GRANULOCYTE # 10.9 k/cumm 2.0-9.0 GRANULOCYTE % 93 % 50-75 LYMPHOCYTE # 0.7 k/cumm 1.0-4.0 LYMPHOCYTE % 6 % 20-30 MEAN CELL HGB 29.7 pg 27.0-33.0 MEAN CELL HGB CONCENTRATION 33.2 g/dL 32.0-37.0 MEAN CELL VOLUME 89.6 fl 80.0-100.0 MONOCYTE # 0.1 k/cumm 0.1-1.0 MONOCYTE % 1 % 4-6 RED BLOOD CELL 5.08 m/cumm 4.00-6.00 RED CELL DISTRIBUTION WIDTH 13.9 % 11.0- 15.6 WHITE BLOOD CELL 11.7 k/cumm 5.0-10.0 HEMOGLOBIN 15.1 gm/dL 14.0-18.0 HEMATOCRIT 45.5 % 40.0-54.0 PLATELET COUNT 296 k/cumm 150-400 METABOLIC PANEL, COMPREHN - 10/25/15 11:57 POTASSIUM 5.0 mmol/L 3.5-5.3 EST GFR (MDRD) > 60 mL/min > 59 ANION GAP 11 mmol/L 5-15 EST CrCl (CG) > 60 mL/min > 59 GLUCOSE 184 mg/dL 70-99 CALCIUM 8.6 mg/dL 8.5-10.1 BLOOD UREA NITROGEN 16 mg/dL 7-20 CREATININE 1.2 mg/dL 0.7-1.3 SODIUM 135 mmol/L 135-148 CHLORIDE 100 mmol/L 98-110 AST/SGOT 26 Units/L 10-37 ALT/SGPT 35 Units/L < 66 CARBON DIOXIDE 24 mmol/L 21-32 TOTAL PROTEIN 7.7 gm/dL 6.4-8.2 ALBUMIN 3.7 gm/dL 3.4-5.0 BILI TOTAL 0.5 mg/dL 0.0-1.0 ALKALINE PHOSPHATASE TOTAL 63 IU/L 45- 117 PHOSPHORUS - 10/25/15 11:57 PHOSPHORUS 3.8 mg/dL 2.5-4.9 MAGNESIUM - 10/25/15 11:57 MAGNESIUM 2.0 mg/dL 1.8-2.4 TROPONIN I - 10/25/15 11:57 TROPONIN I 0.05 ng/mL < 0.07 BLOOD CULTURE - 10/25/15 11:57 Microbiology BLOOD CULTURE - 10/25/15 12:20 Microbiology VIRUS RESPIRATORY PROFILE - 10/25/15 13:12 Microbiology URINALYSIS, ROUTINE - 10/25/15 14:03 UA LEUKOCYTE ESTERASE DIPSTICK NEGATIVE NEGATIVE UA NITRITE DIPSTICK NEGATIVE NEGATIVE UA PROTEIN DIPSTICK 1+ NEGATIVE UA GLUCOSE DIPSTICK NEGATIVE NEGATIVE UA KETONE DIPSTICK NEGATIVE NEGATIVE UA UROBILINOGEN DIPSTICK NORMAL NORMAL UA BILIRUBIN DIPSTICK NEGATIVE NEGATIVE UA BLOOD DIPSTICK NEGATIVE NEGATIVE UA SPECIFIC GRAVITY 1.025 1.015-1.025 UR PH 5.0 5.0-7.0 UA MICROSCOPIC - 10/25/15 14:03 UA EPITHELIAL CELLS 1+ epi/hpf 0 - 1+ UA GRANULAR CAST 1-2 cast/lpf NEGATIVE UA RBC 0 rbc/hpf 0 - 3 UA VOLUME FOR EXAM 12.0 mL (12mL STD) UA WBC 0 wbc/hpf 0 - 5 LACTIC ACID - 10/25/15 16:15 LACTIC ACID 2.4 mmol/L 0.5-2.0 TROPONIN I - 10/25/15 16:15 TROPONIN I 0.03 ng/mL < 0.07 PLATELET COUNT - 10/25/15 16:27 PLATELET COUNT 286 k/cumm 150-400 PROTHROMBIN TIME WITH INR - 10/25/15 16:27 INTERNATIONAL NORMAL RATIO 1.0 0.9-1.1 PROTHROMBIN TIME 11.7 sec 9.3-12.2 PARTIAL THROMBOPLASTIN TIME - 10/25/15 16:27 PARTIAL THROMBOPLASTIN TIME 33 sec 23-39 ARTERIAL BLOOD GAS - 10/25/15 22:54 ABG BASE EXCESS -2.5 meq/L -3.0-3.0 ABG BICARBONATE 24.0 meq/L 23.0-28.0 ABG PCO2 48 mm Hg 34-45 ABG PH 7.32 7.35-7.45 ABG PO2 185 mm Hg 75-100 ABG O2 SATURATION 99 % 93-100 TROPONIN I - 10/25/15 22:54 TROPONIN I 0.04 ng/mL < 0.07 VENOUS BLOOD GAS - 10/26/15 05:44 VBG BASE EXCESS -1.3 mEq/L -3.0-3.0 VBG BICARBONATE 24.7 meq/L 21-30 VBG PCO2 47 mm Hg 41-51 VBG PH 7.34 7.33-7.43 VBG PO2 74 mm Hg 35-40 VBG O2 SATURATION 94 % 65-75 CBC W/DIFF - 10/26/15 05:44 GRANULOCYTE # 14.0 k/cumm 2.0-9.0 GRANULOCYTE % 89 % 50-75 LYMPHOCYTE # 0.9 k/cumm 1.0-4.0 LYMPHOCYTE % 6 % 20-30 MEAN CELL HGB 29.3 pg 27.0-33.0 MEAN CELL HGB CONCENTRATION 32.4 g/dL 32.0-37.0 MEAN CELL VOLUME 90.6 fl 80.0-100.0 MONOCYTE # 0.8 k/cumm 0.1-1.0 MONOCYTE % 5 % 4-6 RED BLOOD CELL 4.67 m/cumm 4.00-6.00 RED CELL DISTRIBUTION WIDTH 14.1 % 11.0- 15.6 WHITE BLOOD CELL 15.7 k/cumm 5.0-10.0 HEMOGLOBIN 13.9 gm/dL 14.0-18.0 HEMATOCRIT 42.4 % 40.0-54.0 PLATELET COUNT 278 k/cumm 150-400 METABOLIC PANEL, BASIC - 10/26/15 05:44 POTASSIUM 4.6 mmol/L 3.5-5.3 EST GFR (MDRD) > 60 mL/min > 59 ANION GAP 7 mmol/L 5-15 EST CrCl (CG) > 60 mL/min > 59 GLUCOSE 146 mg/dL 70-99 CALCIUM 8.5 mg/dL 8.5-10.1 BLOOD UREA NITROGEN 29 mg/dL 7-20 CREATININE 0.9 mg/dL 0.7-1.3 SODIUM 139 mmol/L 135-148 CHLORIDE 106 mmol/L 98-110 CARBON DIOXIDE 26 mmol/L 21-32 CREATINE KINASE (CK/CPK) - 10/26/15 05:44 CREATINE KINASE (CK/CPK) 954 Units/L < 309 TRIGLYCERIDES - 10/26/15 05:44 TRIGLYCERIDES 161 mg/dL < 150 VENOUS BLOOD GAS - 10/27/15 05:52 VBG BASE EXCESS 2.3 mEq/L -3.0-3.0 VBG BICARBONATE 27.0 meq/L 21-30 VBG PCO2 42 mm Hg 41-51 VBG PH 7.42 7.33-7.43 VBG PO2 38 mm Hg 35-40 VBG O2 SATURATION 71 % 65-75 VBG L/MIN 2 L/MIN VBG DEVICE HFNC CBC W/DIFF - 10/27/15 05:52 COMMENT REVIEWED GRANULOCYTE # 15.1 k/cumm 2.0-9.0 GRANULOCYTE % 93 % 50-75 LYMPHOCYTE # 0.6 k/cumm 1.0-4.0 LYMPHOCYTE % 3 % 20-30 MEAN CELL HGB 30.1 pg 27.0-33.0 MEAN CELL HGB CONCENTRATION 33.2 g/dL 32.0-37.0 MEAN CELL VOLUME 90.7 fl 80.0-100.0 MONOCYTE # 0.6 k/cumm 0.1-1.0 MONOCYTE % 4 % 4-6 RED BLOOD CELL 4.42 m/cumm 4.00-6.00 RED CELL DISTRIBUTION WIDTH 14.4 % 11.0- 15.6 WHITE BLOOD CELL 16.3 k/cumm 5.0-10.0 HEMOGLOBIN 13.3 gm/dL 14.0-18.0 HEMATOCRIT 40.1 % 40.0-54.0 PLATELET COUNT 271 k/cumm 150-400 METABOLIC PANEL, BASIC - 10/27/15 05:52 POTASSIUM 4.8 mmol/L 3.5-5.3 EST GFR (MDRD) > 60 mL/min > 59 ANION GAP 6 mmol/L 5-15 EST CrCl (CG) > 60 mL/min > 59 GLUCOSE 170 mg/dL 70-99 CALCIUM 8.5 mg/dL 8.5-10.1 BLOOD UREA NITROGEN 25 mg/dL 7-20 CREATININE 0.9 mg/dL 0.7-1.3 SODIUM 140 mmol/L 135-148 CHLORIDE 106 mmol/L 98-110 CARBON DIOXIDE 28 mmol/L 21-32 VENOUS BLOOD GAS - 10/28/15 05:03 VBG BASE EXCESS 1.5 mEq/L -3.0-3.0 VBG BICARBONATE 27.6 meq/L 21-30 VBG PCO2 49 mm Hg 41-51 VBG PH 7.37 7.33-7.43 VBG PO2 113 mm Hg 35-40 VBG O2 SATURATION 97 % 65-75 METABOLIC PANEL, BASIC - 10/28/15 05:03 POTASSIUM 4.6 mmol/L 3.5-5.3 EST GFR (MDRD) > 60 mL/min > 59 ANION GAP 6 mmol/L 5-15 EST CrCl (CG) > 60 mL/min > 59 GLUCOSE 165 mg/dL 70-99 CALCIUM 8.3 mg/dL 8.5-10.1 BLOOD UREA NITROGEN 23 mg/dL 7-20 CREATININE 0.9 mg/dL 0.7-1.3 SODIUM 140 mmol/L 135-148 CHLORIDE 106 mmol/L 98-110 CARBON DIOXIDE 28 mmol/L 21-32 CBC W/DIFF - 10/28/15 05:03 COMMENT REVIEWED GRANULOCYTE # 11.9 k/cumm 2.0-9.0 GRANULOCYTE % 90 % 50-75 LYMPHOCYTE # 0.6 k/cumm 1.0-4.0 LYMPHOCYTE % 5 % 20-30 MEAN CELL HGB 29.3 pg 27.0-33.0 MEAN CELL HGB CONCENTRATION 32.5 g/dL 32.0-37.0 MEAN CELL VOLUME 90.2 fl 80.0-100.0 MONOCYTE # 0.6 k/cumm 0.1-1.0 MONOCYTE % 5 % 4-6 RED BLOOD CELL 4.47 m/cumm 4.00-6.00 RED CELL DISTRIBUTION WIDTH 14.2 % 11.0- 15.6 WHITE BLOOD CELL 13.2 k/cumm 5.0-10.0 HEMOGLOBIN 13.1 gm/dL 14.0-18.0 HEMATOCRIT 40.3 % 40.0-54.0 PLATELET COUNT 277 k/cumm 150-400 ARTERIAL BLOOD GAS - 02/24/16 12:02 ABG BASE EXCESS -7.8 meq/L -3.0-3.0 ABG BICARBONATE 22.3 meq/L 23.0-28.0 ABG PCO2 67 mm Hg 34-45 ABG PH 7.14 7.35-7.45 ABG PO2 91 mm Hg 75-100 ABG O2 SATURATION 95 % 93-100 BLOOD CULTURE - 02/24/16 12:26 Microbiology CBC W/DIFF - 02/24/16 12:27 COMMENT REVIEWED GRANULOCYTE # 16.5 k/cumm 2.0-9.0 GRANULOCYTE % 94 % 50-75 LYMPHOCYTE # 0.5 k/cumm 1.0-4.0 LYMPHOCYTE % 3 % 20-30 MEAN CELL HGB 30.0 pg 27.0-33.0 MEAN CELL HGB CONCENTRATION 32.3 g/dL 32.0-37.0 MEAN CELL VOLUME 93.1 fl 80.0-100.0 MONOCYTE # 0.5 k/cumm 0.1-1.0 MONOCYTE % 3 % 4-6 RED BLOOD CELL 4.76 m/cumm 4.00-6.00 RED CELL DISTRIBUTION WIDTH 13.9 % 11.0- 15.6 WHITE BLOOD CELL 17.5 k/cumm 5.0-10.0 HEMOGLOBIN 14.3 gm/dL 14.0-18.0 HEMATOCRIT 44.3 % 40.0-54.0 PLATELET COUNT 310 k/cumm 150-400 METABOLIC PANEL, COMPREHN - 02/24/16 12:27 POTASSIUM 5.5 mmol/L 3.5-5.3 EST GFR (MDRD) > 60 mL/min > 59 ANION GAP 10 mmol/L 5-15 EST CrCl (CG) > 60 mL/min > 59 GLUCOSE 194 mg/dL 70-99 CALCIUM 7.6 mg/dL 8.5-10.1 BLOOD UREA NITROGEN 14 mg/dL 7-20 CREATININE 1.1 mg/dL 0.7-1.3 SODIUM 140 mmol/L 135-148 CHLORIDE 106 mmol/L 98-110 AST/SGOT 37 Units/L 10-37 ALT/SGPT 51 Units/L < 66 CARBON DIOXIDE 24 mmol/L 21-32 TOTAL PROTEIN 6.8 gm/dL 6.4-8.2 ALBUMIN 3.5 gm/dL 3.4-5.0 BILI TOTAL 0.6 mg/dL 0.0-1.0 ALKALINE PHOSPHATASE TOTAL 59 IU/L 45- 117 TROPONIN I - 02/24/16 12:27 TROPONIN I 0.03 ng/mL < 0.07 LACTIC ACID - 02/24/16 12:27 LACTIC ACID 2.8 mmol/L 0.5-2.0 PROTHROMBIN TIME WITH INR - 02/24/16 12:28 INTERNATIONAL NORMAL RATIO 1.0 0.9-1.1 PROTHROMBIN TIME 11.2 sec 10.0-12.9 PARTIAL THROMBOPLASTIN TIME - 02/24/16 12:28 PARTIAL THROMBOPLASTIN TIME 32 sec 23-39 BLOOD CULTURE - 02/24/16 12:28 Microbiology ARTERIAL BLOOD GAS - 02/24/16 12:40 ABG BASE EXCESS -10.8 meq/L -3.0-3.0 ABG BICARBONATE 20.2 meq/L 23.0-28.0 ABG PCO2 69 mm Hg 34-45 ABG PH 7.09 7.35-7.45 ABG PO2 89 mm Hg 75-100 ABG O2 SATURATION 94 % 93-100 ARTERIAL BLOOD GAS - 02/24/16 14:35 ABG BASE EXCESS -6.7 meq/L -3.0-3.0 ABG BICARBONATE 21.2 meq/L 23.0-28.0 ABG PCO2 52 mm Hg 34-45 ABG PH 7.23 7.35-7.45 ABG PO2 145 mm Hg 75-100 ABG O2 SATURATION 98 % 93-100 METABOLIC PANEL, BASIC - 02/24/16 17:35 POTASSIUM 5.1 mmol/L 3.5-5.3 EST GFR (MDRD) > 60 mL/min > 59 ANION GAP 10 mmol/L 5-15 EST CrCl (CG) > 60 mL/min > 59 GLUCOSE 151 mg/dL 70-99 CALCIUM 7.6 mg/dL 8.5-10.1 BLOOD UREA NITROGEN 14 mg/dL 7-20 CREATININE 1.1 mg/dL 0.7-1.3 SODIUM 142 mmol/L 135-148 CHLORIDE 107 mmol/L 98-110 CARBON DIOXIDE 25 mmol/L 21-32 RENAL FUNCTION PANEL - 02/24/16 17:35 POTASSIUM 5.1 mmol/L 3.5-5.3 EST GFR (MDRD) > 60 mL/min > 59 ANION GAP 11 mmol/L 5-15 EST CrCl (CG) > 60 mL/min > 59 GLUCOSE 147 mg/dL 70-99 CALCIUM 7.5 mg/dL 8.5-10.1 BLOOD UREA NITROGEN 13 mg/dL 7-20 CREATININE 1.1 mg/dL 0.7-1.3 SODIUM 141 mmol/L 135-148 CHLORIDE 106 mmol/L 98-110 CARBON DIOXIDE 24 mmol/L 21-32 ALBUMIN 3.2 gm/dL 3.4-5.0 PHOSPHORUS 2.6 mg/dL 2.5-4.9 LACTIC ACID - 02/25/16 03:57 LACTIC ACID 3.3 mmol/L 0.5-2.0 CBC - 02/25/16 03:57 MEAN CELL HGB 30.1 pg 27.0-33.0 MEAN CELL HGB CONCENTRATION 32.5 g/dL 32.0-37.0 MEAN CELL VOLUME 92.4 fl 80.0-100.0 RED BLOOD CELL 3.96 m/cumm 4.00-6.00 RED CELL DISTRIBUTION WIDTH 13.9 % 11.0- 15.6 WHITE BLOOD CELL 13.0 k/cumm 5.0-10.0 HEMOGLOBIN 11.9 gm/dL 14.0-18.0 HEMATOCRIT 36.6 % 40.0-54.0 PLATELET COUNT 236 k/cumm 150-400 METABOLIC PANEL, COMPREHN - 02/25/16 04:58 POTASSIUM 3.9 mmol/L 3.5-5.3 EST GFR (MDRD) > 60 mL/min > 59 ANION GAP 12 mmol/L 5-15 EST CrCl (CG) > 60 mL/min > 59 GLUCOSE 135 mg/dL 70-99 CALCIUM 7.7 mg/dL 8.5-10.1 BLOOD UREA NITROGEN 14 mg/dL 7-20 CREATININE 1.0 mg/dL 0.7-1.3 SODIUM 145 mmol/L 135-148 CHLORIDE 106 mmol/L 98-110 AST/SGOT 24 Units/L 10-37 ALT/SGPT 37 Units/L < 66 CARBON DIOXIDE 27 mmol/L 21-32 TOTAL PROTEIN 5.6 gm/dL 6.4-8.2 ALBUMIN 2.8 gm/dL 3.4-5.0 BILI TOTAL 0.6 mg/dL 0.0-1.0 ALKALINE PHOSPHATASE TOTAL 45 IU/L 45- 117 ALPHA 1 ANTITRYPSIN - 02/25/16 04:58 ALPHA 1 ANTITRYPSIN 136 mg/dL 90-200 CREATINE KINASE (CK/CPK) - 02/25/16 04:58 CREATINE KINASE (CK/CPK) 881 Units/L < 309 TRIGLYCERIDES - 02/25/16 04:58 TRIGLYCERIDES 254 mg/dL < 150 LACTIC ACID - 02/25/16 09:23 LACTIC ACID 2.7 mmol/L 0.5-2.0 PROTHROMBIN TIME WITH INR - 02/25/16 09:23 INTERNATIONAL NORMAL RATIO 1.1 0.9-1.1 PROTHROMBIN TIME 12.2 sec 10.0-12.9 PARTIAL THROMBOPLASTIN TIME - 02/25/16 09:23 PARTIAL THROMBOPLASTIN TIME 30 sec 23-39 ARTERIAL BLOOD GAS - 02/25/16 16:51 ABG BASE EXCESS 2.1 meq/L -3.0-3.0 ABG BICARBONATE 27.8 meq/L 23.0-28.0 ABG PCO2 48 mm Hg 34-45 ABG PH 7.38 7.35-7.45 ABG PO2 135 mm Hg 75-100 ABG O2 SATURATION 98 % 93-100 CBC - 02/25/16 16:51 MEAN CELL HGB 30.0 pg 27.0-33.0 MEAN CELL HGB CONCENTRATION 32.5 g/dL 32.0-37.0 MEAN CELL VOLUME 92.1 fl 80.0-100.0 RED BLOOD CELL 4.04 m/cumm 4.00-6.00 RED CELL DISTRIBUTION WIDTH 13.9 % 11.0- 15.6 WHITE BLOOD CELL 15.9 k/cumm 5.0-10.0 HEMOGLOBIN 12.1 gm/dL 14.0-18.0 HEMATOCRIT 37.2 % 40.0-54.0 PLATELET COUNT 262 k/cumm 150-400 METABOLIC PANEL, BASIC - 02/25/16 16:51 POTASSIUM 4.1 mmol/L 3.5-5.3 EST GFR (MDRD) > 60 mL/min > 59 ANION GAP 8 mmol/L 5-15 EST CrCl (CG) > 60 mL/min > 59 GLUCOSE 163 mg/dL 70-99 CALCIUM 7.7 mg/dL 8.5-10.1 BLOOD UREA NITROGEN 17 mg/dL 7-20 CREATININE 0.8 mg/dL 0.7-1.3 SODIUM 144 mmol/L 135-148 CHLORIDE 106 mmol/L 98-110 CARBON DIOXIDE 30 mmol/L 21-32 BLOOD CULTURE - 02/25/16 16:51 Microbiology BLOOD CULTURE - 02/25/16 16:51 Microbiology URINALYSIS, ROUTINE - 02/25/16 17:17 UA LEUKOCYTE ESTERASE DIPSTICK NEGATIVE NEGATIVE UA NITRITE DIPSTICK NEGATIVE NEGATIVE UA PROTEIN DIPSTICK TRACE NEGATIVE UA GLUCOSE DIPSTICK NEGATIVE NEGATIVE UA KETONE DIPSTICK TRACE NEGATIVE UA UROBILINOGEN DIPSTICK NORMAL NORMAL UA BILIRUBIN DIPSTICK NEGATIVE NEGATIVE UA BLOOD DIPSTICK NEGATIVE NEGATIVE UA SPECIFIC GRAVITY 1.037 1.015-1.025 UR PH 6.5 5.0-7.0 UA MICROSCOPIC - 02/25/16 17:17 UA AMORPHOUS SEDIMENT 3+ UA EPITHELIAL CELLS 2+ epi/hpf 0 - 1+ UA HYALINE CAST 0-1 cast/lpf 0 - 1 UA MUCUS 3+ NEG TO 1+ UA RBC 0-3 rbc/hpf 0 - 3 UA VOLUME FOR EXAM 12.0 mL (12mL STD) UA WBC 0-1 wbc/hpf 0 - 5 ARTERIAL BLOOD GAS - 02/26/16 03:51 ABG BASE EXCESS 3.5 meq/L -3.0-3.0 ABG FIO2 40 % ABG BICARBONATE 28.8 meq/L 23.0-28.0 ABG PCO2 47 mm Hg 34-45 ABG PEEP 5 CM ABG PH 7.41 7.35-7.45 ABG PO2 95 mm Hg 75-100 ABG VENT RATE 14 ABG O2 SATURATION 97 % 93-100 CBC - 02/26/16 03:51 MEAN CELL HGB 29.8 pg 27.0-33.0 MEAN CELL HGB CONCENTRATION 32.1 g/dL 32.0-37.0 MEAN CELL VOLUME 92.7 fl 80.0-100.0 RED BLOOD CELL 3.86 m/cumm 4.00-6.00 RED CELL DISTRIBUTION WIDTH 14.0 % 11.0- 15.6 WHITE BLOOD CELL 10.4 k/cumm 5.0-10.0 HEMOGLOBIN 11.5 gm/dL 14.0-18.0 HEMATOCRIT 35.8 % 40.0-54.0 PLATELET COUNT 250 k/cumm 150-400 RENAL FUNCTION PANEL - 02/26/16 03:51 POTASSIUM 3.7 mmol/L 3.5-5.3 EST GFR (MDRD) > 60 mL/min > 59 ANION GAP 6 mmol/L 5-15 EST CrCl (CG) > 60 mL/min > 59 GLUCOSE 119 mg/dL 70-99 CALCIUM 7.6 mg/dL 8.5-10.1 BLOOD UREA NITROGEN 16 mg/dL 7-20 CREATININE 0.7 mg/dL 0.7-1.3 SODIUM 143 mmol/L 135-148 CHLORIDE 108 mmol/L 98-110 CARBON DIOXIDE 29 mmol/L 21-32 ALBUMIN 2.5 gm/dL 3.4-5.0 PHOSPHORUS 2.7 mg/dL 2.5-4.9 CREATINE KINASE (CK/CPK) - 02/26/16 10:29 CREATINE KINASE (CK/CPK) 1325 Units/L < 309 ARTERIAL BLOOD GAS - 02/26/16 18:46 ABG BASE EXCESS 3.4 meq/L -3.0-3.0 ABG FIO2 40 % ABG BICARBONATE 30.3 meq/L 23.0-28.0 ABG PCO2 59 mm Hg 34-45 ABG PEEP 10 CM ABG PH 7.34 7.35-7.45 ABG PO2 94 mm Hg 75-100 ABG PRESSURE SUPPORT 5 CM ABG O2 SATURATION 96 % 93-100 ABG TEMPERATURE 37.7 C GLUCOSE (POC) - 02/27/16 00:06 GLUCOSE (POC) TEST NOT PERFORMED mg/dL GLUCOSE (POC) - 02/27/16 00:42 GLUCOSE (POC) 113 mg/dL 70-99 CBC - 02/27/16 03:58 MEAN CELL HGB 30.1 pg 27.0-33.0 MEAN CELL HGB CONCENTRATION 32.2 g/dL 32.0-37.0 MEAN CELL VOLUME 93.6 fl 80.0-100.0 RED BLOOD CELL 3.75 m/cumm 4.00-6.00 RED CELL DISTRIBUTION WIDTH 14.2 % 11.0- 15.6 WHITE BLOOD CELL 11.2 k/cumm 5.0-10.0 HEMOGLOBIN 11.3 gm/dL 14.0-18.0 HEMATOCRIT 35.1 % 40.0-54.0 PLATELET COUNT 250 k/cumm 150-400 RENAL FUNCTION PANEL - 02/27/16 03:58 POTASSIUM 4.0 mmol/L 3.5-5.3 EST GFR (MDRD) > 60 mL/min > 59 ANION GAP 2 mmol/L 5-15 EST CrCl (CG) > 60 mL/min > 59 GLUCOSE 117 mg/dL 70-99 CALCIUM 7.8 mg/dL 8.5-10.1 BLOOD UREA NITROGEN 16 mg/dL 7-20 CREATININE 0.7 mg/dL 0.7-1.3 SODIUM 144 mmol/L 135-148 CHLORIDE 108 mmol/L 98-110 CARBON DIOXIDE 34 mmol/L 21-32 ALBUMIN 2.4 gm/dL 3.4-5.0 PHOSPHORUS 1.8 mg/dL 2.5-4.9 CREATINE KINASE (CK/CPK) - 02/27/16 03:58 CREATINE KINASE (CK/CPK) 746 Units/L < 309 TRIGLYCERIDES - 02/27/16 03:58 TRIGLYCERIDES 313 mg/dL < 150 ARTERIAL BLOOD GAS - 02/27/16 10:48 ABG BASE EXCESS 4.9 meq/L -3.0-3.0 ABG BICARBONATE 30.8 meq/L 23.0-28.0 ABG PCO2 51 mm Hg 34-45 ABG PH 7.40 7.35-7.45 ABG PO2 79 mm Hg 75-100 ABG O2 SATURATION 95 % 93-100 CBC - 02/28/16 03:41 MEAN CELL HGB 30.2 pg 27.0-33.0 MEAN CELL HGB CONCENTRATION 32.7 g/dL 32.0-37.0 MEAN CELL VOLUME 92.4 fl 80.0-100.0 RED BLOOD CELL 3.84 m/cumm 4.00-6.00 RED CELL DISTRIBUTION WIDTH 13.7 % 11.0- 15.6 WHITE BLOOD CELL 12.2 k/cumm 5.0-10.0 HEMOGLOBIN 11.6 gm/dL 14.0-18.0 HEMATOCRIT 35.5 % 40.0-54.0 PLATELET COUNT 278 k/cumm 150-400 METABOLIC PANEL, BASIC - 02/28/16 03:41 POTASSIUM 4.1 mmol/L 3.5-5.3 EST GFR (MDRD) > 60 mL/min > 59 ANION GAP 3 mmol/L 5-15 EST CrCl (CG) > 60 mL/min > 59 GLUCOSE 133 mg/dL 70-99 CALCIUM 8.9 mg/dL 8.5-10.1 BLOOD UREA NITROGEN 22 mg/dL 7-20 CREATININE 0.7 mg/dL 0.7-1.3 SODIUM 142 mmol/L 135-148 CHLORIDE 105 mmol/L 98-110 CARBON DIOXIDE 34 mmol/L 21-32 CBC W/DIFF - 02/29/16 03:53 GRANULOCYTE # 8.3 k/cumm 2.0-9.0 GRANULOCYTE % 73 % 50-75 LYMPHOCYTE # 1.5 k/cumm 1.0-4.0 LYMPHOCYTE % 13 % 20-30 MEAN CELL HGB 29.6 pg 27.0-33.0 MEAN CELL HGB CONCENTRATION 32.7 g/dL 32.0-37.0 MEAN CELL VOLUME 90.6 fl 80.0-100.0 MONOCYTE # 1.4 k/cumm 0.1-1.0 MONOCYTE % 12 % 4-6 RED BLOOD CELL 4.25 m/cumm 4.00-6.00 RED CELL DISTRIBUTION WIDTH 13.4 % 11.0- 15.6 WHITE BLOOD CELL 11.5 k/cumm 5.0-10.0 HEMOGLOBIN 12.7 gm/dL 14.0-18.0 HEMATOCRIT 38.4 % 40.0-54.0 PLATELET COUNT 334 k/cumm 150-400 RENAL FUNCTION PANEL - 02/29/16 03:53 POTASSIUM 4.3 mmol/L 3.5-5.3 EST GFR (MDRD) > 60 mL/min > 59 ANION GAP 4 mmol/L 5-15 EST CrCl (CG) > 60 mL/min > 59 GLUCOSE 127 mg/dL 70-99 CALCIUM 9.1 mg/dL 8.5-10.1 BLOOD UREA NITROGEN 23 mg/dL 7-20 CREATININE 0.7 mg/dL 0.7-1.3 SODIUM 140 mmol/L 135-148 CHLORIDE 102 mmol/L 98-110 CARBON DIOXIDE 34 mmol/L 21-32 ALBUMIN 2.4 gm/dL 3.4-5.0 PHOSPHORUS 2.9 mg/dL 2.5-4.9 CBC W/DIFF - 03/01/16 06:21 EOSINOPHIL # 0.4 k/cumm 0.1-0.5 EOSINOPHIL % 4 % 2-4 GRANULOCYTE # 7.5 k/cumm 2.0-9.0 LYMPHOCYTE # 2.3 k/cumm 1.0-4.0 LYMPHOCYTE % 21 % 20-30 MEAN CELL HGB 29.5 pg 27.0-33.0 MEAN CELL HGB CONCENTRATION 32.4 g/dL 32.0-37.0 MEAN CELL VOLUME 91.0 fl 80.0-100.0 MONOCYTE # 0.6 k/cumm 0.1-1.0 MONOCYTE % 6 % 4-6 RED BLOOD CELL 4.34 m/cumm 4.00-6.00 RED CELL DISTRIBUTION WIDTH 13.4 % 11.0- 15.6 WHITE BLOOD CELL 10.8 k/cumm 5.0-10.0 HEMOGLOBIN 12.8 gm/dL 14.0-18.0 HEMATOCRIT 39.5 % 40.0-54.0 PLATELET COUNT 328 k/cumm 150-400 MANUAL DIFF(R) - 03/01/16 06:21 BAND % 2 % 0-10 DIFFERENTIAL MANUAL RBC MORPH NOTED SEGMENTED NEUTROPHIL % 67 % 50-70 RENAL FUNCTION PANEL - 03/01/16 06:21 POTASSIUM 3.7 mmol/L 3.5-5.3 EST GFR (MDRD) > 60 mL/min > 59 ANION GAP 6 mmol/L 5-15 EST CrCl (CG) > 60 mL/min > 59 GLUCOSE 99 mg/dL 70-99 CALCIUM 8.9 mg/dL 8.5-10.1 BLOOD UREA NITROGEN 26 mg/dL 7-20 CREATININE 0.7 mg/dL 0.7-1.3 SODIUM 139 mmol/L 135-148 CHLORIDE 100 mmol/L 98-110 CARBON DIOXIDE 33 mmol/L 21-32 ALBUMIN 2.6 gm/dL 3.4-5.0 PHOSPHORUS 3.6 mg/dL 2.5-4.9 Encounters ACCT No. Visit Date/Time Discharge Status Pt. Type Provider Facility Loc./Unit Complaint [id number] 04/25/2013 09:25:00 2012 23:59:59 CLS Outpatient Johan Whiteside MD [facility] [id number] 02/07/2013 14:15:00 2012 23:59:59 YOSSI Outpatient Johan Whiteside MD [facility] [id number] 12/12/2012 13:50:00 2012 23:59:59 CLS Outpatient Johan Whiteside MD [facility]
--- OUTSIDE RECORDS SUMMARY | 2016-10-22 08:13 | XMS REPORT | Continuity of Care Document ---
Author Author [facility] Organization [facility] Address Unknown Phone Unavailable Support Name Relationship Address Phone TELLYCARINA GLASS Caregiver [address] [place] [address] Unavailable VERNELL BAUTISTA MD Caregiver [address] [place] [address] Unavailable CONSTANCE CHAVARRIA Next Of Kin [address] [place], [place] [address] Insurance Providers Guarantor Chula Chavarria Address [address] [place] [address] CP Email [email or web address] Payer [facility] Policy Number [id number] Subscriber's Name Chula Chavarira Relationship 18 Self Group Number [id number] [facility] Policy Number [id number] Subscriber's Name Chula Chavarria Relationship 18 Self Group Number [id number] Advance Directives Directive Response Recorded Date/Time Ordered Resuscitation Status Full Code 11/16/13 5:14pm Chief Complaint and Reason for Visit Chief Complaint Dyspnea/Respdistress Reason for Visit Pneumothorax Acute respiratory failure Severe sepsis Problems Active Problems Medical Problem Onset Date Status Borderline diabetes mellitus Unknown Chronic Bullous emphysema Unknown Chronic CAD (coronary artery disease) Unknown Chronic COPD exacerbation Unknown Acute Hyperlipemia Unknown Chronic Hypertension Unknown Chronic Pneumothorax on right Unknown Acute Pneumothorax, chronic Unknown Acute Pneumothorax, left Unknown Acute Rectal cancer ~2012 Resolved Past Problems Medical Problem Onset Date Acute respiratory failure Unknown COPD Unknown Pneumothorax Unknown Severe sepsis Unknown right pneumothorax Unknown Medications Current Home Medications Medication Dose Units Route Directions Days Qty Instructions Start Date Albuterol Sulfate (Proair Hfa 90 Mcg/Actuation) 8.5 Gm Hfa.aer.ad 1 Puff Inhalation Every 6 Hours 02/24/16 Alprazolam 0.25 Mg Tablet 0.25 Mg Oral 02/24/16 Aspirin 81 Mg Tablet 81 Mg Oral Twice A Day 11/16/13 Atorvastatin Calcium 40 Mg Tablet 20 Mg Oral Daily 11/16/13 Lisinopril 10 Mg Tablet 20 Mg Oral Daily 04/30/13 Tiotropium [place] (Spiriva Respimat) 4 Gm Mist.inhal 1 Puff Oral Inhalation Daily 02/24/16 Past Home Medications Medication Directions Ordered Status Lisinopril/Hydrochlorothiazide (Lisinopril-Hctz 10-12.5 Tablet) 1 Tab Tablet, 1 Tab Oral Daily 12/11/12 Discontinued Lisinopril/Hydrochlorothiazide (Lisinopril-Hctz 20-25MG Tab) 1 Tab Tablet, 0.5 Tab Oral Daily 10/04/12 Discontinued Nebivolol Hcl (Bystolic) 5 Mg Tablet, 5 Mg Oral Daily 10/04/12 Discontinued Sildenafil Citrate (Viagra) 50 Mg Tablet, 50 Mg Oral As Needed 10/04/12 Discontinued Simvastatin 40 Mg Tablet, 40 Mg Oral Daily 10/04/12 Discontinued Social History Social History Problem Response Recorded Date/Time Onset Date Status Chewing Tobacco Status No 11/16/2013 3:28pm Not Applicable Not Applicable Hx Substance Use No 02/24/2016 7:34am Not Applicable Not Applicable Hx Alcohol Use No 02/24/2016 7:34am Not Applicable Not Applicable Has the pt used tobacco in the last 12 months Yes 08/01/2014 3:34pm Not Applicable Not Applicable Tobacco Usage none 10/25/2015 3:26am Not Applicable Not Applicable Query Response Start Date Stop Date Smoking Status Current some day smoker Hospital Discharge Instructions No hospital discharge instructions. Plan of Care Discharge Date 02/24/16 8:50am Disposition 02 TO [facility] Condition at Discharge Stabilized for Transport Prescriptions See Medication Section Referrals VERNELL BAUTISTA MD Address: [address] [place] [address] [place] [address] Functional Status No functional status results. Allergies, Adverse Reactions, Alerts No known allergies. Immunizations Query Response on File Recorded Date/Time Hx Influenza Vaccination Y 04/21/14 08/01/14 3:34pm Hx Pneumococcal Vaccination No 08/01/14 3:34pm Hx Tetanus, Diptheria, Pertussis No 04/21/14 12:56pm Hx Influenza Vaccination Y 04/21/14 08/01/14 3:34pm Hx Tetanus Diptheria No 04/21/14 12:56pm Hx Tetanus, Diptheria, Pertussis No 04/21/14 12:56pm Hx Tetanus Toxoid Vaccination No 04/21/14 12:56pm Influenza Vaccine Hx 2015 02/24/16 7:30am Vital Signs Acute Vital Signs Vital Response Date/Time Temperature (Fahrenheit) 99.1 deg F (96.8 - 99.1) 02/24/2016 8:50am Temperature (Calculated Celsius) 37.88430 degrees C (36.0 - 37.3) 02/24/2016 8:50am Pulse Rate (adult) 76 bpm (60 - 100) 02/24/2016 8:50am Respiratory Rate 24 breaths/min (10 - 20) 02/24/2016 8:50am O2 Sat by Pulse Oximetry 95 % (90 - 100) 02/24/2016 8:50am Oxygen Flow Rate 15.00 L/min 02/24/2016 6:12am Fraction of Inspired Oxygen (FIO2) 70 % 02/24/2016 8:50am Blood Pressure 109/58 mm Hg 02/24/2016 8:50am Height (Feet) 5 feet 02/24/2016 6:42am Height (Inches) 10.00 inches 02/24/2016 6:42am Weight (Kilograms) 100.000 kg 02/24/2016 6:42am Body Mass Index (BMI) 31.0 02/24/2016 6:10am Results Laboratory Results Test Name Result Units Flags Reference Collection Date/Time Result Date/ Time Comments White Blood Count 12.8 T/MM3 H 4.5-11.0 02/24/2016 6:am 02/24/2016 6: 36am Red Blood Count 5.28 M/MM3 4.50-5.90 02/24/2016 6:am 02/24/2016 6: 36am Hemoglobin 15.7 GM/DL 13.5-17.5 02/24/2016 6:am 02/24/2016 6:36am Hematocrit 48.8 % 41-53 02/24/2016 6:am 02/24/2016 6:36am Mean Corpuscular Volume 92.4 UM3 80-100 02/24/2016 6:02/24/2016 6: 36am Mean Corpuscular Hemoglobin 29.7 UUG 26-34 02/24/2016 6:2015 6:36am Mean Corpuscular Hemoglobin Concent 32.2 GM/DL 31-37 02/24/2016 6:02/24/2016 6:36am RDW Standard Deviation 44.0 FL 36.9-50.2 02/24/2016 6:02/24/2016 6 :36am Platelet Count 382 T/MM3 130-400 02/24/2016 6:02/24/2016 6:36am Mean Platelet Volume 9.1 UM3 L 9.4-12.4 02/24/2016 6:02/24/2016 6: 36am Neutrophils (%) (Auto) 54.9 % 33-66 02/24/2016 6:02/24/2016 6: 36am Lymphocytes (%) (Auto) 34.9 % 23-45 02/24/2016 6:02/24/2016 6: 36am Monocytes (%) (Auto) 8.4 % 0-9.0 02/24/2016 6:02/24/2016 6:36am Eosinophils (%) (Auto) 0.5 % 0-4 02/24/2016 6:02/24/2016 6:36am Basophils (%) (Auto) 0.3 % 0-2 02/24/2016 6:02/24/2016 6:36am Immature Granulocyte % (Auto) 1.0 % H 0.0-0.5 02/24/2016 6:2015 6:36am Absolute Neutrophils (auto) 7.1 T/MM3 1.8-7.7 02/24/2016 6:2015 6:36am Absolute Lymphocytes (auto) 4.5 T/MM3 1-4.8 02/24/2016 6:2015 6:36am Absolute Monocytes (auto) 1.1 T/MM3 H 0-0.8 02/24/2016 6:2015 6:36am Absolute Eosinophils (auto) 0.1 T/MM3 0-0.5 02/24/2016 6:2015 6:36am Absolute Basophils (auto) 0.0 T/MM3 0-0.2 02/24/2016 6:02/24/2016 6:36am Absolute Immature Granulocyte (auto 0.13 T/MM3 H 0.00-0.03 02/24/2016 6: 02/24/2016 6:36am Icterus Index < 2 0-7 02/24/2016 6:02/24/2016 6:42am Chemistry Specimen Hemolysis < 15 0-25 02/24/2016 6:02/24/2016 6 :42am 0-25: Specimen Exhibited No Hemolysis. Turbidity < 20 0-20 02/24/2016 6:02/24/2016 6:42am Sodium Level 144 MEQ/L 134-144 02/24/2016 6:02/24/2016 6:42am Potassium Level 4.4 MEQ/L 3.6-5 02/24/2016 6:02/24/2016 6:42am Chloride Level 102 MEQ/L 98-107 02/24/2016 6:02/24/2016 6:42am Carbon Dioxide Level 28 MEQ/L 22-30 02/24/2016 6:02/24/2016 6: 42am Anion Gap 14 MEQ/L 5-15 02/24/2016 6:02/24/2016 6:42am Blood Urea Nitrogen 14.0 MG/DL -02/24/2016 6:02/24/2016 6: 42am Creatinine 0.9 MG/DL 0.8-1.5 02/24/2016 6:02/24/2016 6:42am BUN/Creatinine Ratio 16 RATIO 6-02/24/2016 6:02/24/2016 6:42am Glomerular Filtration Rate Calc 88 02/24/2016 6:02/24/2016 6: 42am Glucose Level 235 MG/DL H 75-110 02/24/2016 6:02/24/2016 6:42am Calculated Osmolality 286 MOSM/KG H 261-280 02/24/2016 6:2015 6:42am Calcium Level 9.1 MG/DL 8.4-10.2 02/24/2016 6:02/24/2016 6:42am Total Bilirubin 0.70 MG/DL 0.20-1.30 02/24/2016 6:02/24/2016 6: 42am Alkaline Phosphatase 76 U/L 38-126 02/24/2016 6:02/24/2016 6:42am Total Protein 8.0 G/DL 6.3-8.2 02/24/2016 6:02/24/2016 6:42am Albumin 4.8 G/DL 3.5-5.0 02/24/2016 6:02/24/2016 6:42am Globulin 3.2 G/DL 2.4-3.6 02/24/2016 6:02/24/2016 6:42am Albumin/Globulin Ratio 1.5 RATIO 1.1-2.2 02/24/2016 6:02/24/2016 6 :42am Aspartate Amino Transf (AST/SGOT) 33 U/L 17-59 02/24/2016 6:2015 6:42am Alanine Aminotransferase (ALT/SGPT) 44 U/L 21-72 02/24/2016 6: 6:42am Troponin I < 0.012 ng/ml 0-0.12 02/24/2016 6:02/24/2016 6:53am Troponin values with a difference of 55% increase from orginal troponin value represent a true biological DELTA value. (%increase Calc=Orginal Troponin value, divided by subsequent Troponin value, multiplied by 100) TO-Bez-R-Type Natriuretic Peptide 58 PG/ML 0-175 02/24/2016 6: 6:53am Rule in cut points: <50 years old=450; 50-75 years old=900; >75 years old=1800; When utilizing ProBNP rule-in cut points, adjustment for impaired renal function is typically not required. Plasma Lactate 3.5 MMOL/L H 0.6-2.2 02/24/2016 6:02/24/2016 6:41am Procalcitonin < 0.05 NG/ML 02/24/2016 6:02/24/2016 7:01am PCT < /=0.5 ng/mL - sepsis not likely; PCT >0.5 and </=2 ng/mL - sepsis possible; PCT >2 ng/mL - sepsis likely; PCT >/=10 ng/mL - systemic inflammatory response - sepsis or septic shock highly indicated. Arterial Blood pH 7.140 *L 7.350-7.450 02/24/2016 7:55am 02/24/2016 8: 40am Arterial Blood Partial Pressure CO2 65 MMHG *H 34-45 02/24/2016 7:55am 8:40am Arterial Blood pO2 at Patient Temp 89 MMHG 80-100 02/24/2016 7:55am 8:40am Arterial Blood HCO3 22 MEQ/L 22-26 02/24/2016 7:55am 02/24/2016 8:40am Arterial Blood Total CO2 24.1 MEQ/L 23-27 02/24/2016 7:55am 02/24/2016 8:40am Arterial Blood Base Excess -7.7 MMOL/L L -2.0-2.0 02/24/2016 7:55am 8:40am Arterial Blood Oxygen Saturation 94.0 % L 95.0-98.0 02/24/2016 7:55am 8:40am Blood Gas Oxygen Percent Given 70 02/24/2016 7:55am 02/24/2016 8: 40am Blood Gas Oxygen Liter Flow 15 02/24/2016 6:17am 02/24/2016 6:52am Oxygen Delivery Method (LAB) VENT-ENDOTRACH, % 02/24/2016 7:55am 8:40am Microbiology Results Procedure Source Organism/Result Collection Date/Time Result Date/Time Result Status Blood Culture Cath/Port/Line/Picc CULTURE INITIATED - RESULTS PENDING 02/23 6:25am 02/24/2016 6:29am Preliminary Name: CHULA CHAVARRIA Unit #: [id number] : 1960 Sex: M Admit Date: Loc / Svc: ED Discharge Date: DIAGNOSTIC IMAGING REPORT Report #: [id number] [facility] JAUN Wan Indication: ITS.REASON: respiratory distress PROCEDURE: CT CHEST W/O CONTRAST: Encounter: Initial Comparison: Chest CT dated October 25, 2015 and chest x-rays from today Technique: Axial CT images were performed through the chest without intravenous contrast. Coronal and sagittal two-dimensional reformats. Findings: Large bilateral pneumothoraces are again seen with multiple areas of loculation bilaterally. Large blebs and bullous changes right greater than left. There is a similar amount of aerated lung on both sides compared to the prior study. There is severe atelectasis seen in both lower lobes. Significant collapse also in the right middle and left upper lobe. Right lower lobe bronchial wall thickening and consolidation is stable. Endotracheal tube in place extending to the level of the thoracic inlet. No axillary or mediastinal adenopathy. Heart size is unchanged. No pericardial effusion. The upper abdomen shows no acute findings. Some mucus or debris in the trachea. Central airways are patent however Impression: Stable large bilateral multiloculated pneumothoraces and severe bullous emphysema. There is a preliminary report by [facility]. . Procedures No known history of procedures. Encounters Encounter Location Arrival/Admit Date Discharge/Depart Date Attending Provider Departed Emergency Room [facility] 02/24/16 6:04am 02/24/16 8: 50am CARINA VARNER DO Recent Diagnosis
--- OUTSIDE RECORDS SUMMARY | 2016-10-22 08:13 | XMS REPORT | Continuity of Care Document ---
Author Author [facility] Organization [facility] Address Unknown Phone Unavailable Support Name Relationship Address Phone CONSTANCE LR Next Of Kin [address] [place] [address] Unavailable Insurance Providers Payer Name Policy Number Subscriber Name Relationship [facility] [id number] Chula Chavarria 18 Self Problems No Known [...] Procedures Procedure Code Date LESION REMOVAL COLONOSCOPY 78525 10/05/12 COLONOSCOPY AND BIOPSY 61676 10/05/12 ANTERIOR RECT RESECT NEC 48.63 10/16/12 LG-TO-LG BOWEL ANASTOM 45.94 10/16/12 ENDO RECTUM POLYPECTOMY 48.36 10/16/12 INSERT TUNNELED CV CATH [id number] 12/11/12 Encounters Encounter Location Date/Time Departed Emergency Room [facility] 12/26/12 6:15am Discharged Inpatient [facility] 12/13/12 4:25am
[2016-10-22 08:39] VITALS: TEMP 98.7; Ht 172.7 cm; Wt 100.0 kg
--- NOTE | 2016-10-22 09:41 | ANESPREOP ---
Anesthesia Record Date and Time DATE: 10/22/16 TIME: 09:33 Pre-Op Diagnosis personal history colon cancer Proposed Surgical Procedure COLONOSCOPY NPO since: 2199 Allergies: Coded Allergies: No Known Allergies (Unverified , 10/22/16) Ht/Wt/BMI Height: 5 ' 8.00 " Weight: 100.000 kg BMI: 33.5 kg/m2 Vital Signs Date Time Temp Pulse Resp B/P Pulse Ox O2 Delivery O2 Flow Rate FiO2 10/22/16 08:39 98.7 Medications Inpatient Medications Current Medications Medications (Trade) Dose Ordered Sig/Petty Start Time Stop Time Status Last Admin Dose Admin Lactated Ringer's (Lactated Ringers) 1,000 ml @ 30 mls/hr Q24H 10/22/16 07:00 10/22/16 09:18 30 MLS/HR Albuterol Sulfate (Proair HFA 90 mcg/actuation) 8.5 Gm Hfa.aer.ad, 1 PUFF INH Q6H, (Reported) Last Taken: on 10/22/16 0600 Alprazolam (Alprazolam) 0.25 Mg Tablet, 0.25 MG PO, (Reported) Last Taken: on Unknown Date & Time Aspirin (Aspirin) 81 Mg Tablet, 81 MG PO BID, (Reported) Last Taken: on 10/18/16 Atorvastatin Calcium (Atorvastatin Calcium) 20 Mg Tablet, 1 TAB PO HS, (Reported) Last Taken: on 10/15/16 Escitalopram Oxalate (Escitalopram Oxalate) 10 Mg Tablet, 1 TAB PO DAILY, (Reported) Last Taken: on 10/15/16 Lisinopril (Lisinopril) 20 Mg Tablet, 20 MG PO DAILY, (Reported) Last Taken: on 10/15/16 Tiotropium [place] (Spiriva Respimat) 4 Gm Mist.inhal, 1 PUFF ORAL INH DAILY, (Reported) Last Taken: on 10/21/16 2345 Currently on Beta Cristian: No Medical/Surgical History Anesthesia PMH: Reports: *Dyspnea, *Hypertension (TAKES MEDICATION ), *MD ( NSTEMI with x2 stents 2012), Arthritis, Asthma, COPD (EMPHYSEMA), Cancer (COLON CA FINISHED CHEMO 05-31-13), Hyperlipidemia, Pneumonia, Reflux (HX), Denies: * Angina, *Diabetes, Anesthesia Reactions (NO AIWAY/INTUBATION ISSUES KNOWN), Blood Transfusion Reac, CHF, CVA/Stroke/TIA, Clotting Problems, Deep Vein Thrombosis, Glaucoma, Hepatitis, Hiatal Hernia, Pacemaker, Renal Disease, Rheumatic Fever, Seizures, Sleep Apnea, Thyroid Disease, Tuberculosis Smoking Status: Former smoker Has pt. smoked today?: No # of Packs per Day: 1 # of Years: 30 Use Chewing Tobacco?: No Second Hand Exposure: No Substance Use Type: does not use Alcohol Intake: none Past Surgical History Orthopedic Surgeries: Yes - L THUMB PARTIAL AMPUTATION Abdominal Surgeries: Yes - bowel resection 10/16 Genitourinary Surgeries: No Cardiac Surgeries: Yes - X2 STENTS Endocrine Surgeries: No Reproductive Surgeries: Yes - VASECTOMY Neurological Surgeries: No Ear Surgeries: Yes - TUBES IN EARS Nose Surgeries: No Throat Surgeries: Yes - TONSILLECTOMY Other Surgeries: Yes - PORT-A-CATH INSERTED ON 12/11/12, CHEST TUBE FOR PNEUMOTHORAX Anesthesia Adverse Reactions: FOUND none Hx of Motion Sickness: No Pertinent Findings EKG Rhythm: Sinus Rhythm Physical Exam Respiratory: Decreased breath sounds L, Decreased breath sounds R Cardiovascular: FOUND Regular rate, rhythm, FOUND No murmur Airway Assessment Mallampati Score: III TMD: 3 Fingerbreadths Neck Extension: Good Teeth: Upper Dentures, Partial Lower Dentures Overall Assessment: May Be Diff Intubation ASA: 3 Plan Anesthesia Plan: TIVA Discussion Discussed risks/options/alternatives of anesthesia and questions answered. Patient consents. Nursing pain assessment noted. Present: Spouse Attestation Statement Prior to the delivery of any anesthetic medication, I examined the patient, developed the plan, obtained the patient's consent and discussed the risk and benefits of the procedure with the patient/guardian. MARY SANDOVAL I CDL DEDICATED TRUCK DRIVER October 22, 2016 09:38
[2016-10-22] MEDS ORDERED: PROPOFOL 500mg 50 ML IV ONE (10:21)
[2016-10-22 10:49] VITALS: BP 99/62; PULSE 65; RESP 12; TEMP 96.9; O2SAT 92
--- NOTE | 2016-10-22 11:02 | ANESPO ---
Post-Op Note Date 10/22/16 Time: 11:02 Status Pt Participated in Evaluation: Pt participated in person Vital Signs Date Time Temp Pulse Resp B/P Pulse Ox O2 Delivery O2 Flow Rate FiO2 10/22/16 10:49 96.9 65 12 99/62 92 Mask 6.00 Respiratory Function: Airway patent Mental Status: Alert/oriented Pain Level Intensity: 0 Unable to Assess Pain Due To: Medicated/Sleeping Hydration: IV infusing Complications during Recovery None apparent Follow-Up Instructions Instructions Per Surgeon RUBI FOOTE October 22, 2016 11:02
[2016-10-22 11:15] VITALS: BP 98/64; PULSE 66; RESP 16; O2SAT 96
[2016-10-22 11:30] VITALS: BP 104/69; PULSE 60; RESP 16; O2SAT 93
--- NOTE | 2016-10-22 13:00 | OPNOTEF ---
DATE OF PROCEDURE 10/22/2016 SURGEON Bladimir Zhao MD PREOPERATIVE DIAGNOSIS Personal history for colon cancer. POSTOPERATIVE DIAGNOSIS Personal history for colon cancer, diverticulosis involving remaining descending colon. PROCEDURE Colonoscopy. ANESTHESIA TIVA BRIEF HISTORY/INDICATIONS Mr. Chavarria is a 56-year-old gentleman who is known my surgical practice. In 2012 the patient underwent a low anterior resection as the result of a rectal cancer. He has done quite well since that time with no evidence for recurrence. He presents today to undergo followup colonoscopy. For completeness please refer to notes included in the patient's chart. FINDINGS Upon colonoscopy the anastomosis was well visualized and was without any evidence for recurrence. The patient had some residual diverticula within his remaining descending colon region. There was no evidence for angiodysplastic lesions, polyps or lorie allergies. DESCRIPTION OF PROCEDURE After informed consent was obtained the patient was brought to the endoscopy suite and placed on the table in left lateral decubitus position. The patient subsequently underwent total intravenous anesthesia by the nurse step down specialist per my request. Formal time-out was then completed. Next, digital rectal examination was performed. Normal sphincter tone. No rectal mass was appreciated. An Olympus colonoscope was inserted in the anus and advanced with the lumen of the colon under direct visualization at all times till the cecum was ascertained. Triangulation of taenia coli, ileocecal valve and appendiceal lumen were all visualized. Scope was then slowly withdrawn, again maintaining visualization of the lumen at all times. As stated above, the entire colon was without evidence for angiodysplastic lesions, polyps or lorie allergies. The patient was found have a few scattered diverticula within his remaining descending colon. Colonoscope was continued to be withdrawn till it was brought forth back to rectal vault. One could see the prior anastomosis. No abnormalities were noted at the anastomotic site. A J-maneuver was then performed. No worrisome perianal pathology was noted. Scope was allowed to straighten and withdrawn through the anal verge. The patient tolerated the procedure without difficulty and was sent back to the preop area in stable condition. Secondary to his personal history for rectal cancer, I would recommend that he undergo repeat colonoscopy at a 3-year interval. If he still is without any evidence for recurrence at that time, would recommend that he then be increased to an every 5-year basis thereafter. LUCINA
== END 2016-10-22 11:33 | disposition home or self-care (01) ==
LOC: NSC 08:06
PROVIDERS: ATTEND Surgery
DX: Z12.11 Encounter for screening for malignant neoplasm of colon (principal); Z85.038 Personal history of other malignant neoplasm of large intestine; K57.30 Diverticulosis of large intestine without perforation or abscess without bleeding; K63.89 Other specified diseases of intestine; Z90.49 Acquired absence of other specified parts of digestive tract; Z86.010 Personal history of colon polyps; Z99.81 Dependence on supplemental oxygen; E78.5 Hyperlipidemia, unspecified; I10 Essential (primary) hypertension; Z79.82 Long term (current) use of aspirin; Z79.899 Other long term (current) drug therapy; Z87.891 Personal history of nicotine dependence
CPT/HCPCS: 45378; J1642; J2704; J7120

== ENCOUNTER 2016-11-19 11:17 | Observation (INO) ==
[2016-11-19] MEDS ORDERED: IPRATROPIUM/ALBUTEROL 2.5mg-0.5mg/3ml NEB AEROSOL ONE (11:44)
[2016-11-19] MEDS ORDERED: ONDANSETRON 4 MG/2 ML INJECTION IVP ONE (11:44)
[2016-11-19] MEDS ORDERED: NS 1,000 ML IV ONE (11:44)
[2016-11-19] MEDS ORDERED: SALINE FLUSH 10ml SYRINGE IVF PRN (11:44)
[2016-11-19] MEDS ORDERED: MORPHINE SULFATE 4 MG SYRINGE IVP ONE ×2 (11:44→14:07)
--- NOTE | 2016-11-19 12:07 | CT Scan Report ---
Indication: Trauma, large tree limb fell on patient, possible loss of consciousness. PROCEDURE: CT head/brain wo con: Encounter: Initial Comparison: None Technique: Axial CT images through the head were performed without contrast. Iterative Reconstruction dose reducing technique was utilized. FINDINGS: Chronic appearing right frontal lobe area of infarct with encephalomalacia. The ventricles are of normal size, shape, and contour for the patient's age. There are scattered areas of low attenuation in the white matter which most likely represent changes from chronic microvascular ischemia. The brainstem, cerebellum, and cerebral hemispheres otherwise have a normal morphology and CT attenuation. There is no evidence of midline displacement. No hemorrhage, signs of acute territorial stroke, mass effect, mass lesions, or edema is evident. Calcified sebaceous cyst in the left posterior parietal scalp. The visualized portions of the skull base, midface, and calvarium demonstrate no acute abnormality. The paranasal sinuses are well aerated and free of significant disease. The tympanic and mastoid cavities appear normal. IMPRESSION: No acute traumatic intracranial abnormality. .
--- NOTE | 2016-11-19 12:11 | CT Scan Report ---
Indication: Trauma, large tree limb fell on the patient's back with diffuse back pain PROCEDURE: CT cervical spine wo con: Encounter: Initial Comparison: CT thoracic spine from the same time Technique: Axial CT images through the cervical spine were performed without contrast. Coronal and sagittal reformatted images were also obtained. Automated Exposure Control and Iterative Reconstruction dose reducing techniques were utilized. FINDINGS: The alignment of the cervical spine is normal. Multilevel degenerative changes are present. There is no evidence of acute fracture or subluxation of the cervical spine. The atlantoaxial articulation, dens, and upper cervical spine demonstrate no subluxation. Severe bullous emphysema is again seen in the lung apices, left greater than right. There is a mildly displaced fracture of the left scapular spine, better evaluated on the CT thoracic spine study. IMPRESSION: 1. No acute traumatic abnormality of the cervical spine. 2. Left scapular fracture. .
--- NOTE | 2016-11-19 12:20 | CT Scan Report ---
Indication: History large tree limb fell on patient's back with severe back pain PROCEDURE: CT thoracic spine wo con: Encounter: Initial Comparison: CT chest dated February 24, 2016 Technique: Axial noncontrast CT imaging of the thoracic spine was performed with coronal and sagittal two-dimensional reformats. Automated Exposure Control and Iterative Reconstruction dose reducing techniques were utilized. FINDINGS: Alignment of the thoracic spine is normal for the patient's age. There is a mildly displaced fracture of the left scapular spine. There are acute fractures of the superior endplates at T8 and T9 with approximately 10% height loss. There is associated paravertebral hematoma surrounding the fractured vertebrae. Severe bullous emphysema in the left lung with minimal aerated lung remaining. Moderate bullous emphysema in the right lung. No true pneumothorax. Impression: 1. Acute mild superior endplate compression fractures of T8 and T9. 2. Left scapular spine fracture. .
--- NOTE | 2016-11-19 12:28 | CT Scan Report ---
Indication: Trauma with tree limb falling on the patient's back, severe back pain PROCEDURE: CT lumbar spine wo con: Encounter: Initial Comparison: None Technique: Axial noncontrast CT imaging of the lumbar spine was performed with coronal and sagittal two-dimensional reformats. Automated Exposure Control and Iterative Reconstruction dose reducing techniques were utilized. FINDINGS: The alignment of the lumbar spine is normal for the patient's age. No fractures or traumatic subluxation of the lumbar spine is evident. The facet joints are well aligned with preservation of the intervertebral disk and facet joints. There are age appropriate degenerative changes within the intervertebral disks and facet joints in the lower lumbar region. Probable left renal cyst. IMPRESSION: No evidence for acute traumatic injury of the lumbar spine. .
[2016-11-19] MEDS ORDERED: HYDROMORPHONE 2 MG/ML INJECTION IVP ONE (12:40)
[2016-11-19] MEDS ORDERED: ORPHENADRINE 60 MG/2 ML INJECTION IV ONE (12:40)
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
[2016-11-19] MEDS ORDERED: SALINE FLUSH 10ml SYRINGE ONE (12:43)
[2016-11-19] MEDS ORDERED: IOHEXOL 300mg/ml 100ml INJECTION ONE (12:43)
[2016-11-19] MEDS ORDERED: NS 100 ML ONE (12:43)
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
[2016-11-19] MEDS ORDERED: MORPHINE SULFATE 10 MG SYRINGE IV ONE (14:01)
[2016-11-19] MEDS ORDERED: NS 1,000 ML IV SCH (14:15)
[2016-11-19] MEDS ORDERED: APAP PO ONE (15:50)
[2016-11-19] MEDS ORDERED: OXYCODONE PO ONE (15:50)
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
[2016-11-19] MEDS ORDERED: ONDANSETRON 4 MG/2 ML INJECTION IVP PRN ×2 (16:32→16:38)
[2016-11-19] MEDS ORDERED: HYDROMORPHONE 2 MG/ML INJECTION IVP PRN (16:32)
[2016-11-19] MEDS ORDERED: IPRATROPIUM/ALBUTEROL 2.5mg-0.5mg/3ml NEB AEROSOL PRN (16:39)
[2016-11-19] MEDS ORDERED: HYDROCODONE/APAP 10 MG/325 MG TABLET PO PRN (16:45)
[2016-11-19] MEDS: 1/2 NS 1,000 ML IV SCH (17:07)
[2016-11-19] MEDS: CALCITONIN NASAL SPRAY 3.7ml NS SCH (18:16)
[2016-11-19] MEDS: MELOXICAM 7.5 MG TABLET PO SCH (18:18)
[2016-11-19] MEDS ORDERED: Pharmacy Consult for Fall Risk MC PRN (19:47)
[2016-11-19] MEDS ORDERED: DOCUSATE SODIUM 100 MG CAPSULE PO SCH (21:00)
[2016-11-19] MEDS: IPRATROPIUM/ALBUTEROL 2.5mg-0.5mg/3ml NEB AEROSOL SCH (21:04)
[2016-11-19] MEDS: BUDESONIDE INH.SOLN 0.5mg/2ml NEB AEROSOL SCH (21:06)
[2016-11-19] MEDS: HYDROMORPHONE 2 MG/ML INJECTION IVP PRN (21:20)
[2016-11-19] MEDS: SALINE FLUSH 10ml SYRINGE IV PRN (22:00)
[2016-11-19] MEDS: SENNA + DOCUSATE TABLET PO SCH (22:12)
[2016-11-19] MEDS: ATORVASTATIN 20 MG TABLET PO SCH (22:12)
[2016-11-19] MEDS: CALCIUM 600 + VIT D 400 TABLET PO SCH (22:12)
[2016-11-19] MEDS: CYCLOBENZAPRINE 10 MG TABLET PO SCH (22:12)
[2016-11-19] MEDS: APAP PO PRN (22:50)
[2016-11-19] MEDS: OXYCODONE PO PRN (22:50)
[2016-11-20] MEDS: HYDROMORPHONE 2 MG/ML INJECTION IVP PRN ×3 (01:16→21:46)
[2016-11-20] MEDS: 1/2 NS 1,000 ML IV SCH ×2 (01:38→09:46)
[2016-11-20] MEDS: IPRATROPIUM/ALBUTEROL 2.5mg-0.5mg/3ml NEB AEROSOL SCH ×4 (08:22→21:29)
[2016-11-20] MEDS: BUDESONIDE INH.SOLN 0.5mg/2ml NEB AEROSOL SCH ×2 (08:22→21:29)
[2016-11-20] MEDS: CYCLOBENZAPRINE 10 MG TABLET PO SCH ×3 (09:47→21:32)
[2016-11-20] MEDS: ASPIRIN 81 MG CHEWABLE TABLET PO SCH (09:47)
[2016-11-20] MEDS: CALCIUM 600 + VIT D 400 TABLET PO SCH ×2 (09:47→21:32)
[2016-11-20] MEDS: MELOXICAM 7.5 MG TABLET PO SCH (09:47)
[2016-11-20] MEDS: LISINOPRIL 20 MG TABLET PO SCH (09:48)
[2016-11-20] MEDS: ESCITALOPRAM 10 MG TABLET PO SCH (09:48)
[2016-11-20] MEDS: SENNA + DOCUSATE TABLET PO SCH ×2 (09:48→21:32)
--- NOTE | 2016-11-20 12:29 | Progress Note ---
Subjective: F/U: Thoracic compression Fx, Scapular fracture, Blunt force trauma Doing okay today-still having significant pain to left shoulder. Sling and pain medications helping. Not nauseated with pain medicine, but very sleepy. Breathing feels stable-not having increased congestion, cough or SOA. Able to ambulate with therapy. Passing flatus. Urinating well. Appetite stable. Objective Vital signs: Temp Pulse Resp BP Pulse Ox 99.6 F 78 16 125/76 96 11/20/16 07:54 11/20/16 07:54 11/20/16 11:46 11/20/16 07:54 11/20/16 11:46 Weight: 100.5 kg - Constitutional Present: mild distress, well nourished, well developed, obese, somnolent - Routine HEENT Exam Head: Present: normocephalic, atraumatic Eye: Present: EOMI, PERRL ENT: Present: mucous membranes moist - Routine Respiratory Exam Present: prolonged expiratory phase, wheezes, distant breath sounds, diminished air movement - Routine Cardiovascular Exam Present: RRR - Routine Abdominal Exam Present: soft, normoactive bowel sounds, non distended, non tender - Routine Extremities Exam Present: no edema. Absent: cyanosis, clubbing Comments: Left arm in sling. - Routine Musculoskeletal Exam Musculoskeletal: no clubbing or cyanosis, limited range of motion (Left arm.) - Routine Skin Exam Present: dry, warm - Routine Neurological Exam Present: alert, hearing grossly intact. Absent: motor deficit - Routine Psychiatric Exam Present: unable to assess (Somnolent ) Results - Labs CBC & Chem 7: 11/20/16 10:22 11/20/16 10:22 Assessment and Plan (1) Thoracic compression fracture Current visit: Yes Status: Acute (2) Scapular fracture Current visit: Yes Status: Acute (3) Blunt trauma Current visit: Yes Status: Acute (4) Uncontrolled pain Current visit: Yes Status: Acute (5) Bullous emphysema Current visit: Yes Status: Acute (6) Oxygen dependent Current visit: Yes Status: Acute (7) Colorectal cancer Current visit: Yes Status: Acute (8) Hyperkalemia Current visit: Yes Status: Resolved (9) Hypernatremia Current visit: Yes Status: Resolved (10) Lactate blood increase Current visit: Yes Status: Acute (11) Leukocytosis Current visit: Yes Status: Acute DVT Prophylaxis: SCD's Resuscitation Status: Full Code Assessment and Plan: Will d/c IVF as electrolytes improved and taking oral adequately. Continue to work with pain control - comfortable, but somnolent. Attempt to work with oral medications if possible. Discussed gentle ROM activities with pt's . Needs some movements to avoid developing frozen shoulder. Discussed side effects of pain medications with pt's . Case discussed with Mitchell Sanchez (ortho) - agrees with plan of care for scapular fracture - could see pt in outpatient setting in 2-3 weeks. PT recommended outpatient home health; CM discussed this with patients but she declined (would contact PCP if needed). Likely discharge in near future, based on pain control and somnolence. Sepsis Assessment - Evaluation Sepsis screening result: No Definite Risk - Focused Exam Vital Signs Temp Pulse Resp BP Pulse Ox 11/20/16 11:46 16 96 11/20/16 08:22 16 93 11/20/16 07:54 99.6 F 78 20 125/76 94 Cardiovascular exam: Present: RRR, S1, S2 Hospital Course Summary Disclaimer: The visit summary below is not to be considered part of the above Progress Note. Hospital Course: 11/19/16 Admit to observation status under the hospitalist service for pain control and close monitoring of respiratory and pulmonary status. Elevated lactate: Patient has chronic oxygen use and severe bolus emphysema, and it's possible that his elevated lactate is secondary to poor perfusion rather than acute infection. He didn't have severe hypoxia or hypotension or blood loss to explain perfusion deficit. Will repeat lactate to trend; check procalcitonin. White count elevation is likely secondary to stress response. There is no evidence of infection on CT scan. Will assess UA for completeness. Pain control for T8-T9 endplate fractures and scapular fracture: We'll have IV Dilaudid and Percocet available as needed. Additionally start Miacalcin spray to help brandon fracture pain. Flexeril to help decreased spasm. May use ice to help decrease inflation. Sling to left arm secondary to scapular fracture. Consult PT and OT due to severe pain with movement. Blunt thoracic trauma with underlying Severe emphysema and chronic oxygen dependence: Repeat chest x-ray tomorrow morning. DuoNeb as needed, push incentive spirometry. History of coronary artery disease: Continue aspirin and atorvastatin and lisinopril. Hemodynamically stable on admission. Monitor on telemetry. Advanced directives: He would want his to make decisions for him. He requests full resuscitation. 11/20/16 Will d/c IVF as electrolytes improved and taking oral adequately. Continue to work with pain control - comfortable, but somnolent. Attempt to work with oral medications if possible. Discussed gentle ROM activities with pt's . Needs some movements to avoid developing frozen shoulder. Discussed side effects of pain medications with pt's . Case discussed with Mitchell Sanchez (ortho) - agrees with plan of care for scapular fracture - could see pt in outpatient setting in 2-3 weeks. PT recommended outpatient home health; CM discussed this with patients but she declined (would contact PCP if needed). Likely discharge in near future, based on pain control and somnolence.
[2016-11-20] MEDS: APAP PO PRN (18:23)
[2016-11-20] MEDS: OXYCODONE PO PRN (18:23)
[2016-11-20] MEDS: CALCITONIN NASAL SPRAY 3.7ml NS SCH (18:24)
[2016-11-20] MEDS: ATORVASTATIN 20 MG TABLET PO SCH (21:33)
[2016-11-21] MEDS: APAP PO PRN ×2 (04:12→10:33)
[2016-11-21] MEDS: OXYCODONE PO PRN ×2 (04:12→10:33)
[2016-11-21] MEDS: BUDESONIDE INH.SOLN 0.5mg/2ml NEB AEROSOL SCH (07:27)
[2016-11-21] MEDS: IPRATROPIUM/ALBUTEROL 2.5mg-0.5mg/3ml NEB AEROSOL SCH ×3 (07:30→15:41)
[2016-11-21] MEDS: ESCITALOPRAM 10 MG TABLET PO SCH (09:27)
[2016-11-21] MEDS: LISINOPRIL 20 MG TABLET PO SCH (09:27)
[2016-11-21] MEDS: MELOXICAM 7.5 MG TABLET PO SCH (09:27)
[2016-11-21] MEDS: CALCIUM 600 + VIT D 400 TABLET PO SCH (09:29)
[2016-11-21] MEDS: SENNA + DOCUSATE TABLET PO SCH (09:29)
[2016-11-21] MEDS: CYCLOBENZAPRINE 10 MG TABLET PO SCH ×2 (09:35→16:07)
[2016-11-21] MEDS: ASPIRIN 81 MG CHEWABLE TABLET PO SCH (09:35)
[2016-11-21] MEDS: CALCITONIN NASAL SPRAY 3.7ml NS SCH (10:33)
--- NOTE | 2016-11-21 13:07 | Progress Note ---
Subjective: F/U: Thoracic compression Fx, Scapular fracture, Blunt force trauma Improving slowly. Pain still problematic, but having improved control with oral Percocet and Flexeril. Does tend to get somnolent with pain medications, but more readily aroused than yesterday. No nausea with Percocet. Does note cough- produced some thick white sputum this morning. No ab pain. Moving left hand well. Objective Vital signs: Temp Pulse Resp BP Pulse Ox 98.3 F 76 16 119/67 98 11/21/16 08:00 11/21/16 08:00 11/21/16 12:12 11/21/16 08:00 11/21/16 12:12 Weight: 105.8 kg - Constitutional Present: mild distress, well nourished, well developed, obese - Routine HEENT Exam Head: Present: normocephalic, atraumatic Eye: Present: EOMI ENT: Present: mucous membranes moist - Routine Respiratory Exam Present: prolonged expiratory phase, wheezes (Faint), crackles, distant breath sounds, diminished air movement. Absent: respiratory distress - Routine Cardiovascular Exam Present: RRR - Routine Abdominal Exam Present: soft, non distended, non tender. Absent: guarding, firm - Routine Extremities Exam Present: pulses intact. Absent: cyanosis, clubbing - Routine Musculoskeletal Exam Musculoskeletal: no clubbing or cyanosis, limited range of motion (Left shoulder ) - Routine Skin Exam Present: intact, dry, warm - Routine Neurological Exam Present: alert, oriented X3, CN II-XII intact. Absent: motor deficit - Routine Psychiatric Exam Present: normal affect. Absent: anxious, agitated Results - Labs CBC & Chem 7: 11/20/16 10:22 11/20/16 10:22 Assessment and Plan (1) Thoracic compression fracture Current visit: Yes Status: Acute (2) Scapular fracture Current visit: Yes Status: Acute (3) Blunt trauma Current visit: Yes Status: Acute (4) Uncontrolled pain Current visit: Yes Status: Acute (5) Bullous emphysema Current visit: Yes Status: Acute (6) Oxygen dependent Current visit: Yes Status: Acute (7) Colorectal cancer Current visit: Yes Status: Acute (8) Hyperkalemia Current visit: Yes Status: Resolved POA (9) Hypernatremia Current visit: Yes Status: Resolved POA (10) Lactate blood increase Current visit: Yes Status: Resolved (11) Leukocytosis Current visit: Yes Status: Resolved DVT Prophylaxis: SCD's Resuscitation Status: Full Code Assessment and Plan: Will D/C to home. Continue with pain control. Discussed side effects of pain medications. Continue with IS and Acapella for pulmonary toilet. With pt's increased sputum, will start Prednisone 20mg daily for 4 days and Azithromycin 500mg for 3 days. F/U with Dr Hilton in 1 week. F/U with Mitchell in 2-3 weeks. Pt will need to be off work for 2-4 weeks to allow for recovery. See orders for details. Case discussed with nursing and pt's . Time spent with care and discharge greater than 35 minutes. Sepsis Assessment - Evaluation Sepsis screening result: Severe Sepsis Risk - Focused Exam Vital Signs Temp Pulse Resp BP Pulse Ox 11/21/16 12:12 16 98 11/21/16 09:20 97 11/21/16 08:00 98.3 F 76 22 119/67 97 11/21/16 07:28 20 100 Respiratory exam: Present: prolonged expiratory phase, wheezes, distant breath sounds, diminished air movement Cardiovascular exam: Present: RRR, S1, S2 Hospital Course Summary Disclaimer: The visit summary below is not to be considered part of the above Progress Note. Hospital Course: 11/19/16 Admit to observation status under the hospitalist service for pain control and close monitoring of respiratory and pulmonary status. Elevated lactate: Patient has chronic oxygen use and severe bolus emphysema, and it's possible that his elevated lactate is secondary to poor perfusion rather than acute infection. He didn't have severe hypoxia or hypotension or blood loss to explain perfusion deficit. Will repeat lactate to trend; check procalcitonin. White count elevation is likely secondary to stress response. There is no evidence of infection on CT scan. Will assess UA for completeness. Pain control for T8-T9 endplate fractures and scapular fracture: We'll have IV Dilaudid and Percocet available as needed. Additionally start Miacalcin spray to help brandon fracture pain. Flexeril to help decreased spasm. May use ice to help decrease inflation. Sling to left arm secondary to scapular fracture. Consult PT and OT due to severe pain with movement. Blunt thoracic trauma with underlying Severe emphysema and chronic oxygen dependence: Repeat chest x-ray tomorrow morning. DuoNeb as needed, push incentive spirometry. History of coronary artery disease: Continue aspirin and atorvastatin and lisinopril. Hemodynamically stable on admission. Monitor on telemetry. Advanced directives: He would want his to make decisions for him. He requests full resuscitation. 11/20/16 Will d/c IVF as electrolytes improved and taking oral adequately. Continue to work with pain control - comfortable, but somnolent. Attempt to work with oral medications if possible. Discussed gentle ROM activities with pt's . Needs some movements to avoid developing frozen shoulder. Discussed side effects of pain medications with pt's . Case discussed with Mitchell Sanchez (ortho) - agrees with plan of care for scapular fracture - could see pt in outpatient setting in 2-3 weeks. PT recommended outpatient home health; CM discussed this with patients but she declined (would contact PCP if needed). Likely discharge in near future, based on pain control and somnolence. 11/21/16 Will D/C to home. Continue with pain control. Discussed side effects of pain medications. Continue with IS and Acapella for pulmonary toilet. With pt's increased sputum, will start Prednisone 20mg daily for 4 days and Azithromycin 500mg for 3 days. F/U with Dr Hilton in 1 week. F/U with Mitchell in 2-3 weeks. Pt will need to be off work for 2-4 weeks to allow for recovery. See orders for details.
--- NOTE | 2016-11-21 13:17 | Discharge Summary ---
Discharge Information Date of admission: 11/19/16 16:08 Anticipated date of discharge: 11/21/16 Attending Physician: Gray Bedoya MD Primary care physician: Chele Hilton MD - Discharge Diagnosis (1) Thoracic compression fracture Qualifiers: Encounter type: initial encounter Fracture type: closed Qualified Code(s) : S22.000A - Wedge compression fracture of unspecified thoracic vertebra, initial encounter for closed fracture Status: Acute (2) Scapular fracture Qualifiers: Encounter type: initial encounter Scapula location: body Fracture type: closed Fracture alignment: nondisplaced Laterality: left Qualified Code(s) : S42.115A - Nondisplaced fracture of body of scapula, left shoulder, initial encounter for closed fracture Status: Acute (3) Blunt trauma Status: Acute (4) Uncontrolled pain Status: Acute (5) Bullous emphysema Status: Chronic (6) Oxygen dependent Status: Chronic (7) Colorectal cancer Status: Acute (8) Hyperkalemia Problem Details: POA Status: Resolved (9) Hypernatremia Problem Details: POA Status: Resolved (10) Lactate blood increase Status: Resolved (11) Leukocytosis Status: Resolved - Laboratory Labs: 11/20/16 10:22 11/20/16 10:22 History of Present Illness HPI: Amilcar Chavarria is a 56-year-old male being admitted to the hospitalist service under observation status for pain control and respiratory monitoring. He was using a chain saw to cut a tree this morning about 10:30 when the tree skipped off the stump and a large branch swept down striking him across the upper shoulder. He was knocked to the ground, and denies loss of consciousness, but he feels like that he was dazed and had the wind knocked out of him briefly. His brought him by POV to [facility] emergency department where he urgently was assessed with multiple CT scans and lab work. He was found to have a left scapular fracture and T8-T9 endplate compression fractures of less than 10% with an associated paravertebral hematoma. Otherwise , there is no visceral injury or evidence of pneumothorax or pulmonary contusion. Head CT was also negative. Labs are showing a white count elevated at 15,000, and lactate was high at 3.1. Despite multiple doses of IV narcotics he remained in significant pain. Chemistries showed mild hypernatremia and mild hyperkalemia. Trauma surgeon Dr. Amilcar Esteves from [facility] was consulted, and these injuries,it is unlikely orthopedic or neurosurgery would need to get involved. Medical history includes severe bullous emphysema for which she is oxygen dependent. He reports that he has about 7% function in his left lung. He also has a history of colorectal cancer and is status post resection in 2013. Amilcar and his report that otherwise he has been in his usual state of health, but admits that he has been thinking about skilled nursing because of his ongoing health problems. The patient and his deny any recent illness, chest pain, weakness, abdominal pain, nausea, vomiting, diarrhea , constipation, or urinary problems, leg swelling, rashes, or any abnormal difficulty breathing. His pain becomes very severe with any sort of movement and he is having muscular spasms to his left lower back with slight movement of his head or legs. He has chronic paresthesias to both feet and his hands from chemotherapy effects, but otherwise denies any unilateral weakness or new paresthesias. For complete details of the H&P refer to that document. Hospital Course Hospital course: 11/19/16 Admit to observation status under the hospitalist service for pain control and close monitoring of respiratory and pulmonary status. Elevated lactate: Patient has chronic oxygen use and severe bolus emphysema, and it's possible that his elevated lactate is secondary to poor perfusion rather than acute infection. He didn't have severe hypoxia or hypotension or blood loss to explain perfusion deficit. Will repeat lactate to trend; check procalcitonin. White count elevation is likely secondary to stress response. There is no evidence of infection on CT scan. Will assess UA for completeness. Pain control for T8-T9 endplate fractures and scapular fracture: We'll have IV Dilaudid and Percocet available as needed. Additionally start Miacalcin spray to help brandon fracture pain. Flexeril to help decreased spasm. May use ice to help decrease inflation. Sling to left arm secondary to scapular fracture. Consult PT and OT due to severe pain with movement. Blunt thoracic trauma with underlying Severe emphysema and chronic oxygen dependence: Repeat chest x-ray tomorrow morning. DuoNeb as needed, push incentive spirometry. History of coronary artery disease: Continue aspirin and atorvastatin and lisinopril. Hemodynamically stable on admission. Monitor on telemetry. Advanced directives: He would want his to make decisions for him. He requests full resuscitation. 11/20/16 Will d/c IVF as electrolytes improved and taking oral adequately. Continue to work with pain control - comfortable, but somnolent. Attempt to work with oral medications if possible. Discussed gentle ROM activities with pt's . Needs some movements to avoid developing frozen shoulder. Discussed side effects of pain medications with pt's . Case discussed with Mitchell Boyd (ortho) - agrees with plan of care for scapular fracture - could see pt in outpatient setting in 2-3 weeks. PT recommended outpatient home health; CM discussed this with patients but she declined (would contact PCP if needed). Likely discharge in near future, based on pain control and somnolence. 11/21/16 Will D/C to home. Continue with pain control. Discussed side effects of pain medications. Continue with IS and Acapella for pulmonary toilet. With pt's increased sputum, will start Prednisone 20mg daily for 4 days and Azithromycin 500mg for 3 days. F/U with Dr Hilton in 1 week. F/U with Mitchell in 2-3 weeks. Pt will need to be off work for 2-4 weeks to allow for recovery. See orders for details. Narrative disclaimer: Above narrative is a brief summary of pt's hospitalization. For complete details of the hospital course, refer to the medical record. DVT Prophylaxis: SCD's Discharge Plan - Med Rec/Dispo Referrals/Follow Up: Chele Hilton MD [Family Provider] - 1 Week Mitchell Boyd PA [Physician Commercial [employer]cher] - 2 Weeks (F/U Scapular fracture. ) Prescriptions: New Azithromycin [Zithromax] 500 mg PO DAILY #3 tablet Calcitonin Nasal [place] [Miacalcin [place]] 1 spray NS DAILY #1 bottle Calcium 600 + D [Caltrate + D] 1 tab PO BID Meloxicam [Mobic] 7.5 mg PO WB #30 Oxycodone/APAP 10/325 [Percocet 10/325] 1 tab PO Q6H PRN #45 tab PRN Reason: Pain Cyclobenzaprine [Flexeril] 10 mg PO TID PRN #60 PRN Reason: Spasms PredniSONE [Deltasone] 20 mg PO WB #4 tab Continue Tiotropium [place] [Spiriva Respimat] 1 puff ORAL INH DAILY #0 inhaler ALPRAZolam [Alprazolam] 0.25 mg PO PRN PRN #0 tab PRN Reason: Anxiety Albuterol Sulfate [Proair Hfa] 1 puff INH Q6H #0 inhaler Atorvastatin Calcium 20 mg PO HS #0 tab Lisinopril 20 mg PO DAILY #0 tab Escitalopram Oxalate 10 mg PO DAILY #0 tab Aspirin 81 mg PO DAILY Discontinued Hydrocodone/APAP 7.5/325 [[place] 7.5/325] 1 tab PO Q6H PRN PRN Reason: Pain - Disposition 01 Discharged Home, Self-Care
--- NOTE | 2016-11-21 13:38 | Work/School Release ---
Work/School Release - Date Date: 11/21/16 - Work Release Remain off work/school for:: Mr Chavarria was hospitalized at [facility] from November 19 until November 21, 2016. Due to the condition which prompted his hospitalization, he needs to be off work for at least 2-4 weeks to facilitate recovery. He will need outpatient evaluation by his primary care provider and specialist. Potential need for outpatient therapy exists.
[2016-11-21] MEDS: HYDROMORPHONE 2 MG/ML INJECTION IVP PRN (15:53)
[2016-11-21] MEDS: SALINE FLUSH 10ml SYRINGE IV PRN (16:03)
--- NOTE | 2016-11-21 23:28 | XRay Report ---
INDICATION: F/U PROCEDURE: CHEST 2-VIEWS UPRIGHT (PA & LAT) Encounter: Initial COMPARISON: Chest CT dated November 19, 2016 FINDINGS: The lungs are again diffusely abnormal with severe bullous emphysema in the right lung. Rightward mediastinal shift is chronic. There may be some developing atelectasis or infiltrate in the right lower lobe. No definite pneumothorax. Heart size and right-sided pulmonary vascularity is unchanged. Impression: Possible developing right lower lobe atelectasis or pneumonia. .
== END 2016-11-21 16:40 | disposition home or self-care (01) ==
LOC: MED 11:17 → ED 11:17 → MED 16:04
PROVIDERS: ADMIT Hospitalist; ATTEND Hospitalist